=== PATIENT | male | born 1950 | race Caucasian/White ===

== ENCOUNTER 2017-01-03 16:04 | Inpatient (IN) | payer MEDICARE, MEDICAID ==
[2017-01-03 16:25] LABS: % BASOPHILS 0.5 % (0.0-2.0); % EOSINOPHILS 3.4 % (0.0-5.0); % LYMPHOCYTES 23.9 % (20.0-50.0); % MONOCYTES 10.7 % (2.0-10.0); % NEUTROPHILS 61.5 % (40.0-80.0); HEMATOCRIT 36.9 % (39.0-49.0); HEMOGLOBIN 12.3 gm/dL (12.6-17.4); MEAN CELL VOLUME 100.4 fl (80-99); MEAN CORPUSCULAR HEMOGLOBIN 33.6 pg (27.0-31.0); MEAN CORPUSCULAR HGB CONC 33.5 pg (28.0-36.0); MEAN PLATELET VOLUME 9.7 fl; NEUTROPHILE ABSOLUTE 4.4 Th/cmm (1.8-8.0); PLATELET COUNT 129 Th/cmm (150-400); RED BLOOD COUNT 3.67 Mil/cmm (3.80-5.80); RED CELL DISTRIBUTION WIDTH 14.6 % (11.5-20.0); WHITE BLOOD COUNT 7.1 Th/cmm (4.8-10.8)
[2017-01-03 16:37] LABS: INR 1.09 (0.5-1.4); PROTHROMBIN TIME (TEST) 11.4 SECONDS (9.5-11.5)
[2017-01-03 16:40] LABS: ALB/GLOB RATIO 1.1 (1.0-1.8); ALKALINE PHOSPHATASE 60 U/L (34-104); ANION GAP 9.7 (7.0-16.0); BILIRUBIN,TOTAL 0.5 mg/dL (0.3-1.0); BUN - UREA NITROGEN 39 mg/dL (7-25); BUN/CREATININE RATIO 27.9; CALCIUM SERUM 9.7 mg/dL (8.6-10.3); CHLORIDE 112 mEq/L (98-107); CREATININE - SERUM 1.4 mg/dL (0.7-1.3); GLUCOSE 95 mg/dL (70-105); POTASSIUM SERUM 4.7 mEq/L (3.5-5.1); SGOT 25 U/L (13-39); SGPT/ALT 13 U/L (7-52); SODIUM SERUM 148 mEq/L (136-145)
[2017-01-03 16:41] LABS: CHOLESTEROL 178 mg/dL (<200); TRIGLYCERIDES 106 mg/dL (<150)
[2017-01-03 16:44] LABS: URINE BILIRUBIN NEGATIVE (NEGATIVE); URINE BLOOD SMALL (NEGATIVE); URINE GLUCOSE (UA) NEGATIVE (NEGATIVE); URINE KETONE NEGATIVE (NEGATIVE); URINE PROTEIN NEGATIVE (NEGATIVE); URINE UROBILINOGEN 0.2 E.U./dL (0.2 - 1.0)
[2017-01-03 16:53] LABS: URINE COLOR YELLOW
[2017-01-03 16:54] LABS: URINE BACTERIA FEW /hpf (NONE SEEN); URINE EPITHELIAL CELLS OCCASIONAL /lpf (FEW)
[2017-01-03] MEDS ORDERED: Sodium Chloride 0.45% 1,000 ML IV ONE (17:17)
--- NOTE | 2017-01-03 17:25 | ED Physician Chart ---
Chief Complaint/HPI - Patient Information Date Seen:: 01/03/17 Time Seen:: 16:10 Chief Complaint:: abdnormal labs History of Present Illness:: THIS A 66 YO MALE SENT FROM A [facility] FOR EVALUATION AND TREATMENT OF ABNORMAL LABS. THE PATIENT HAS INTERMITTENT CHOREA AND HAS LIVER DISEASE BUT IS ORIENTED TIMES THREE. HE HAS CHRONIC LIVER DISEASE Allergies:: Allergies Allergy/AdvReac Type Severity Reaction Status Date / Time No Known Allergies Allergy Verified 01/03/17 16:05 Vitals:: Vital Signs - 8 hr 01/03/17 16:05 Temp 98.1 F HR 50 RR 16 BP 182/83 O2 Sat % 96 Historian:: Medical Records Review:: Nurse's Note Reviewed Review of Systems - Review of Systems General/Constitutional: No fever, No chills, Weight loss, No weight loss, No weakness, No diaphoresis, No edema, No loss of appetite Skin: No skin lesions, No rash, No bruising Head: No headache, No light-headedness Eyes: No loss of vision, No pain, No diplopia ENT: No earache, No nasal drainage, No sore throat, No tinnitus Neck: No neck pain, No swelling, No thyromegaly, No stiffness, No mass noted Cardio Vascular: No chest pain, Palpitations, No PND, No orthopnea, No edema Pulmonary: No SOB, No cough, No sputum, No wheezing GI: No nausea, No vomiting, No diarrhea, No pain, No melena, No hematochezia, No constipation, No hematemesis G/U: No dysuria, No frequency, No hematuria Musculoskeletal: No bone or joint pain, No back pain, No muscle pain Endocrine: No polyuria, No polydipsia Psychiatric: Prior psych history, Depression, No anxiety, No suicidal ideation Hematopoietic: No bruising, No lymphadenopathy Allergic/Immuno: No urticaria, No angioedema Neurological: No syncope, No focal symptoms, No weakness, No paresthesia, No headache, No seizure, No dizziness, No confusion, No vertigo Other: CHOREA Past Medical History - Past Medical History Obtainable: Yes Past Medical History: HTN, CVA/TIA, PUD/GERD, Dementia Family History: None Social History: Non Smoker, No Alcohol, No Drug Use, Care Facility Surgical History: None Psychiatricy History: Depression, Schizophrenia Medication: Reviewed Family Medical History - Family Member Mother History Unknown: Yes Physical Exam - Physical Examination General/Constitutional: Awake, Well-developed, well-nourished, Alert, No distress, GCS 15, Non-toxic appearing, Ambulatory Other Gen/Cons comments:: VERY WEAK WITH INTERMITTENT CHOREA,CACHEXIA AND NAUSEATED. Head: Atraumatic Eyes: Lids, conjuctiva normal, PERRL, EOMI Skin: Nl inspection, No rash, No skin lesions, No ecchymosis, Well hydrated, No lymphadenopathy ENMT: External ears, nose nl, Nasal exam nl, Lips, teeth, gums nl Neck: Nontender, Full ROM w/o pain, No JVD, No nuchal rigidity, No bruit, No mass, No stridor Respiratory: Nl effort/Exclusion, Clear to Auscultation, No Wheeze/Rhonchi/Rales Cardio Vascular: RRR, No murmur, gallop, rubs, NL S1 S2 Other Cardio Vascular comments:: THIS PATIENT HAS IRREGULAR FAST AND SLOW PERIOD WITH SICK SINUS-LIKE SYNDROME. GI: No tenderness/rebounding/guarding, No organomegaly, No hernia, Normal BS's, Nondistended, No mass/bruits, No McBurney tenderness : No CVA tenderness Extremities: No tenderness or effusion, Full ROM, normal strength in all extremities, No edema, Normal digits & nails Other Extremities comments:: SEVERE MUSCLE WASTING. Neuro/Psych: Alert/oriented, DTR's symmetric, Normal sensory exam, Judgement/ insight normal, Mood normal, Normal gait, No focal deficits Other Neuro/Psych comments:: INTERMITTENT CHOREA AND PERIODS OF WEAKNESS. Misc: normal gait, Normal back, No paraspinal tenderness Labs/Radiology/EKG Results - Lab Results Results: Laboratory Tests 01/03/17 01/03/17 01/03/17 16:17 16:17 16:17 WBC 7.1 RBC 3.67 L Hgb 12.3 L Hct 36.9 L MCV 100.4 H MCH 33.6 H MCHC Differential 33.5 RDW 14.6 Plt Count 129 L MPV 9.7 Neutrophils % 61.5 Lymphocytes % 23.9 Monocytes % 10.7 H Eosinophils % 3.4 Basophils % 0.5 PT 11.4 INR 1.09 Sodium Potassium Chloride Carbon Dioxide Anion Gap BUN Creatinine Est GFR ( Amer) Est GFR (Non-Af Amer) BUN/Creatinine Ratio Glucose Calcium Total Bilirubin AST ALT Alkaline Phosphatase Troponin I Total Protein Albumin Globulin Albumin/Globulin Ratio Triglycerides 106 Cholesterol 178 LDL Cholesterol Direct 110 HDL Cholesterol 40 Urine Source Urine Color Urine Clarity Urine pH Ur Specific [place] Urine Protein Urine Glucose (UA) Urine Ketones Urine Blood Urine Nitrate Urine Bilirubin Urine Urobilinogen Ur Leukocyte Esterase Urine RBC Urine WBC Ur Epithelial Cells Urine Bacteria 01/03/17 01/03/17 01/03/17 16:17 16:17 16:29 WBC RBC Hgb Hct MCV MCH MCHC Differential RDW Plt Count MPV Neutrophils % Lymphocytes % Monocytes % Eosinophils % Basophils % PT INR Sodium 148 H Potassium 4.7 Chloride 112 H Carbon Dioxide 31.0 Anion Gap 9.7 BUN 39 H Creatinine 1.4 H Est GFR ( Amer) > 60.0 Est GFR (Non-Af Amer) 53.7 BUN/Creatinine Ratio 27.9 Glucose 95 Calcium 9.7 Total Bilirubin 0.5 AST 25 ALT 13 Alkaline Phosphatase 60 Troponin I 0.03 Total Protein 7.0 Albumin 3.7 L Globulin 3.3 Albumin/Globulin Ratio 1.1 Triglycerides Cholesterol LDL Cholesterol Direct HDL Cholesterol Urine Source CLEAN C Urine Color YELLOW Urine Clarity CLEAR Urine pH 6.0 Ur Specific [place] 1.010 Urine Protein NEGATIVE Urine Glucose (UA) NEGATIVE Urine Ketones NEGATIVE Urine Blood SMALL H Urine Nitrate NEGATIVE Urine Bilirubin NEGATIVE Urine Urobilinogen 0.2 Ur Leukocyte Esterase TRACE H Urine RBC 2-5 H Urine WBC 2-5 H Ur Epithelial Cells OCCASIONAL Urine Bacteria FEW - EKG Interpretations EKG Time:: 16:05 Rate & Rhythm: RATE= 44, SINUS [place]: LEFT AXIS Assessment - Assessment General Assessment: HEPATIC ENCEPHALOPATHY SICK SINUS SYNDROME ELEVATED BUN ED Septic Shock - . Is Septic Shock (SBP<90, OR Lactate>4 mmol\L) present?: No - <6hrs of presentation: Vital Signs: Vital Signs - 8 hr 01/03/17 16:05 Temp 98.1 F HR 50 RR 16 BP 182/83 O2 Sat % 96 Reassessment (Disposition) - Reassessment Reassessment Condition:: Improved - Diagnosis Diagnosis:: SICK SINUS SYNDROME HEPATIC FAILUR INTERMITTENT CHOREA - Patient Disposition Discharge/Transfer:: Acute Care w/in this hosp Admitted to:: ICU Admitting Medical Physician:: Jose R Hernandez Condition at Disposition:: Unchanged ED Discharge Plan - Patient Disposition Admit/Discharge/Transfer: Acute Care w/in this hosp Condition at Disposition: Improved
[2017-01-03 20:54] VITALS: BP 160/84
[2017-01-03] MEDS ORDERED: Lactulose 10 Gm/15 mL 30mL UDC PO SCH (21:00)
[2017-01-03] MEDS: Lactulose 10 Gm/15 mL 30mL UDC PO SCH (21:26)
[2017-01-03] MEDS: D5-0.45NS 1,000 ML IV SCH (21:34)
[2017-01-03] MEDS ORDERED: Atropine Sulfate 1 mg/mL 1 mL Vial IVP PRN (23:31)
[2017-01-04] MEDS: Lactulose 10 Gm/15 mL 30mL UDC PO SCH ×4 (08:54→20:16)
[2017-01-04] MEDS: Pantoprazole 40 mg EC Tab PO SCH (08:54)
[2017-01-04 08:56] LABS: MEAN CELL VOLUME 100.2 fl (80-99)
--- NOTE | 2017-01-04 08:56 | Diagnostic Imaging Report ---
Exam: Portable examination of chest. HISTORY: Chest discomfort Findings: Portable upright examination of the chest at 1623 was reviewed, no prior studies available comparison. The study demonstrates COPD changes. Bony thorax remarkable for old fractures of the clavicles bilaterally. Mediastinal structures midline the costophrenic angles are clear. IMPRESSION: 1. COPD changes no acute disease.
[2017-01-04] MEDS ORDERED: LACOSAMIDE PO SCH (09:00)
[2017-01-04] MEDS ORDERED: NYSTATIN TP SCH (09:00)
[2017-01-04 09:12] LABS: ALB/GLOB RATIO 1.1 (1.0-1.8); ANION GAP 8.4 (7.0-16.0); BILIRUBIN,TOTAL 0.6 mg/dL (0.3-1.0); BUN - UREA NITROGEN 30 mg/dL (7-25); BUN/CREATININE RATIO 27.3; CALCIUM SERUM 9.4 mg/dL (8.6-10.3); CARBON DIOXIDE 29.5 mEq/L (21.0-31.0); CHLORIDE 111 mEq/L (98-107); CREATININE - SERUM 1.1 mg/dL (0.7-1.3); GLUCOSE 82 mg/dL (70-105); POTASSIUM SERUM 3.9 mEq/L (3.5-5.1); SGOT 27 U/L (13-39); SGPT/ALT 13 U/L (7-52); SODIUM SERUM 145 mEq/L (136-145)
[2017-01-04 09:13] LABS: ALKALINE PHOSPHATASE 69 U/L (34-104)
[2017-01-04 09:21] LABS: % BASOPHILS 1.4 % (0.0-2.0); % EOSINOPHILS 4.9 % (0.0-5.0); % LYMPHOCYTES 29.1 % (20.0-50.0); % MONOCYTES 9.5 % (2.0-10.0); % NEUTROPHILS 55.1 % (40.0-80.0); HEMATOCRIT 38.1 % (39.0-49.0); HEMOGLOBIN 12.5 gm/dL (12.6-17.4); MEAN CORPUSCULAR HEMOGLOBIN 32.8 pg (27.0-31.0); MEAN CORPUSCULAR HGB CONC 32.7 pg (28.0-36.0); MEAN PLATELET VOLUME 10.6 fl; NEUTROPHILE ABSOLUTE 3.1 Th/cmm (1.8-8.0); RED CELL DISTRIBUTION WIDTH 14.4 % (11.5-20.0)
[2017-01-04 09:22] LABS: PLATELET COUNT 100 Th/cmm (150-400); WHITE BLOOD COUNT 5.6 Th/cmm (4.8-10.8)
--- NOTE | 2017-01-04 12:06 | History and Physical ---
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 PATIENT HAS A PAST MEDICAL HISTORY OF HTN, CVA, TIA, GERD, SCHIZOPHRENIA, DEMENTIA. 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: Other ( MENTIONED IN HPI) GI: Report: GERD Psych: Report: Schizophrenia Musculoskeletal: Report: Other ( MENTIONED IN HPI) Rheumatologic: Report: No pertinent Hx Infectious Disease: Report: No Pertinent Hx Renal/: Report: Other ( MENTIONED IN HPI) - Past Surgical History Past Surgical History: Other Family Medical History - Family Member Mother History Unknown: Yes Social History Smoke: No Alcohol: None Drugs: None Lives: Residential - Medications Home Medications: Home Medication Medication Instructions Recorded Type Calcium Carbonate [Calcium Carb] 600 mg PO DAILY 01/03/[address] [Depakote DR] 250 mg PO TID 01/03/17 History Furosemide [Lasix] 20 mg PO DAILY 01/03/17 History Hydrocodone/APAP 10 mg/325 mg 1 tab PO Q6H PRN 01/03/17 History [Thornton 10 mg/325 mg] Lacosamide [Vimpat] 400 mg PO BID 01/03/17 History Lactulose [Cephulac] 30 ml PO QID 01/03/17 History Latanoprost 0.005% Ophth Soln 1 drop EACH EYE HS 01/03/17 History [Xalatan 0.005% Ophth Soln] Nystatin 1 units TP BID 01/03/17 History Pantoprazole [Protonix] 40 mg PO DAILY 01/03/17 History QUEtiapine Fumarate [SEROquel] 125 mg PO BID 01/03/17 History Sertraline [Zoloft] 50 mg PO HS 01/03/17 History - Allergies Allergies/Adverse Reactions: Allergies Allergy/AdvReac Type Severity Reaction Status Date / Time No Known Allergies Allergy Verified 01/03/17 16:05 Review of Systems - Review of Systems Constitutional: Denies: Fever, Chills Eyes: Denies: Pain ENT: Denies: Ear Pain, Ear Discharge Respiratory: Denies: Cough, Shortness of Breath Cardiovascular: Denies: Chest Pain, Palpitations Gastrointestinal: Denies: Nausea, Vomiting, Abdominal Pain, Diarrhea, Constipation Genitourinary: Denies: Dysuria Musculoskeletal: Denies: Neck Pain, Shoulder Pain Skin: Denies: Rash Neurological: Denies: Incoordination - Lab Results All Lab Results last 24 hours: Laboratory Last Values WBC 5.6 Th/cmm (4.8-10.8) D 01/04/17 08:40 RBC 3.80 Mil/cmm (3.80-5.80) 01/04/17 08:40 Hgb 12.5 gm/dL (12.6-17.4) L 01/04/17 08:40 Hct 38.1 % (39.0-49.0) L 01/04/17 08:40 MCV 100.2 fl (80-99) H 01/04/17 08:40 MCH 32.8 pg (27.0-31.0) H 01/04/17 08:40 MCHC Differential 32.7 pg (28.0-36.0) 01/04/17 08:40 RDW 14.4 % (11.5-20.0) 01/04/17 08:40 Plt Count 100 Th/cmm (150-400) L D 01/04/17 08:40 MPV 10.6 fl 01/04/17 08:40 Neutrophils % 55.1 % (40.0-80.0) 01/04/17 08:40 Lymphocytes % 29.1 % (20.0-50.0) 01/04/17 08:40 Monocytes % 9.5 % (2.0-10.0) 01/04/17 08:40 Eosinophils % 4.9 % (0.0-5.0) 01/04/17 08:40 Basophils % 1.4 % (0.0-2.0) 01/04/17 08:40 PT 11.4 SECONDS (9.5-11.5) 01/03/17 16:17 INR 1.09 (0.5-1.4) 01/03/17 16:17 Sodium 145 mEq/L (136-145) 01/04/17 08:40 Potassium 3.9 mEq/L (3.5-5.1) 01/04/17 08:40 Chloride 111 mEq/L (98-107) H 01/04/17 08:40 Carbon Dioxide 29.5 mEq/L (21.0-31.0) 01/04/17 08:40 Anion Gap 8.4 (7.0-16.0) 01/04/17 08:40 BUN 30 mg/dL (7-25) H 01/04/17 08:40 Creatinine 1.1 mg/dL (0.7-1.3) 01/04/17 08:40 Est GFR ( Amer) > 60.0 ml/min (>90) 01/04/17 08:40 Est GFR (Non-Af Amer) > 60.0 ml/min 01/04/17 08:40 BUN/Creatinine Ratio 27.3 01/04/17 08:40 Glucose 82 mg/dL (70-105) 01/04/17 08:40 Calcium 9.4 mg/dL (8.6-10.3) 01/04/17 08:40 Total Bilirubin 0.6 mg/dL (0.3-1.0) 01/04/17 08:40 AST 27 U/L (13-39) 01/04/17 08:40 ALT 13 U/L (7-52) 01/04/17 08:40 Alkaline Phosphatase 69 U/L (34-104) 01/04/17 08:40 Ammonia 55 umol/L (16-53) H 01/04/17 08:40 Troponin I 0.03 ng/mL (0.01-0.05) 01/03/17 16:17 Total Protein 7.0 gm/dL (6.0-8.3) 01/04/17 08:40 Albumin 3.6 gm/dL (4.2-5.5) L 01/04/17 08:40 Globulin 3.4 gm/dL 01/04/17 08:40 Albumin/Globulin Ratio 1.1 (1.0-1.8) 01/04/17 08:40 Triglycerides 106 mg/dL (<150) 01/03/17 16:17 Cholesterol 178 mg/dL (<200) 01/03/17 16:17 LDL Cholesterol Direct 110 mg/dL (75-193) 01/03/17 16:17 HDL Cholesterol 40 mg/dL (23-92) 01/03/17 16:17 TSH 0.67 uIU/ml (0.34-5.60) 01/04/17 04:48 Urine Source CLEAN C 01/03/17 16:29 Urine Color YELLOW 01/03/17 16:29 Urine Clarity CLEAR (CLEAR) 01/03/17 16:29 Urine pH 6.0 (4.6 - 8.0) 01/03/17 16:29 Ur Specific [place] 1.010 (1.005-1.030) 01/03/17 16:29 Urine Protein NEGATIVE mg/dL (NEGATIVE) 01/03/17 16:29 Urine Glucose (UA) NEGATIVE mg/dL (NEGATIVE) 01/03/17 16:29 Urine Ketones NEGATIVE mg/dL (NEGATIVE) 01/03/17 16:29 Urine Blood SMALL (NEGATIVE) H 01/03/17 16:29 Urine Nitrate NEGATIVE (NEGATIVE) 01/03/17 16:29 Urine Bilirubin NEGATIVE (NEGATIVE) 01/03/17 16:29 Urine Urobilinogen 0.2 E.U./dL (0.2 - 1.0) 01/03/17 16:29 Ur Leukocyte Esterase TRACE (NEGATIVE) H 01/03/17 16:29 Urine RBC 2-5 /hpf (0-5) H 01/03/17 16:29 Urine WBC 2-5 /hpf (0-5) H 01/03/17 16:29 Ur Epithelial Cells OCCASIONAL /lpf (FEW) 01/03/17 16:29 Urine Bacteria FEW /hpf (NONE SEEN) 01/03/17 16:29 Laboratory Results - last 24 hr 01/04/17 01/04/17 01/04/17 04:48 08:40 08:40 WBC RBC Hgb Hct MCV MCH MCHC Differential RDW Plt Count MPV Neutrophils % Lymphocytes % Monocytes % Eosinophils % Basophils % Sodium 145 Potassium 3.9 Chloride 111 H Carbon Dioxide 29.5 Anion Gap 8.4 BUN 30 H Creatinine 1.1 Est GFR ( Amer) > 60.0 Est GFR (Non-Af Amer) > 60.0 BUN/Creatinine Ratio 27.3 Glucose 82 Calcium 9.4 Total Bilirubin 0.6 AST 27 ALT 13 Alkaline Phosphatase 69 Ammonia 55 H Total Protein 7.0 Albumin 3.6 L Globulin 3.4 Albumin/Globulin Ratio 1.1 TSH 0.67 01/04/17 08:40 WBC 5.6 D RBC 3.80 Hgb 12.5 L Hct 38.1 L MCV 100.2 H MCH 32.8 H MCHC Differential 32.7 RDW 14.4 Plt Count 100 L D MPV 10.6 Neutrophils % 55.1 Lymphocytes % 29.1 Monocytes % 9.5 Eosinophils % 4.9 Basophils % 1.4 Sodium Potassium Chloride Carbon Dioxide Anion Gap BUN Creatinine Est GFR ( Amer) Est GFR (Non-Af Amer) BUN/Creatinine Ratio Glucose Calcium Total Bilirubin AST ALT Alkaline Phosphatase Ammonia Total Protein Albumin Globulin Albumin/Globulin Ratio TSH - Assessment Assessment: HEPATIC ENCEPHALOPATHY SICK SINUS SYNDROME ELEVATED BUN SEVERE MALNUTRITION ANEMIA HYPERNATREMIA HTN SCHIZOPHRENIA ACUTE UTI - Plan Plan: AM LABS ICU MONITORING CARDIO CONSULT IV ANTIBIOTICS
[2017-01-04] MEDS ORDERED: VTE Chemical Prophylaxis Screen/Admission MC PRN (12:22)
[2017-01-04] MEDS: cefTRIAXone 1 GM in Sodium Chloride 0.9% 50 ML IV SCH (13:00)
[2017-01-04] MEDS: NYSTATIN 100000 UNITS/GM POWD TP SCH ×2 (13:00→17:26)
--- NOTE | 2017-01-04 14:55 | Cardiology ---
01/04/2017 M-MODE ECHOCARDIOGRAM: Technically poor. 2D ECHO: Only structure ____ apical 4-chamber view, which showed normal sized left ventricle with hypertrophy of the left ventricle. Left atrium normal. Right ventricular cavity, right atrium normal, no pericardial effusion. CONCLUSION: Technically poor echo, hypertrophy of the left ventricle, ejection fraction 50%. Doppler study shows [id number] left ventricular hypertrophy, trace tricuspid regurgitation, ejection fraction 50%. [facility]# [id number]
[2017-01-04] MEDS: Theophylline 100 mg ER Tab PO SCH (17:26)
[2017-01-04] MEDS: D5-0.45NS 1,000 ML IV SCH (17:35)
--- NOTE | 2017-01-04 20:15 | Consultation ---
DATE OF CONSULTATION: 01/04/[address] Hernandez. HISTORY AND PHYSICAL: This is a 66-year-old male patient who was transferred to ICU because of altered level of consciousness with severe bradycardia. PAST MEDICAL HISTORY: Hypertension, schizophrenia, TIA, gastroesophageal reflux disease, dementia, hepatic encephalopathy, urinary tract infection, protein-calorie malnutrition, chorea, and old fracture on the right clavicle. FAMILY HISTORY: Unremarkable. SOCIAL HISTORY: No history of smoking or alcohol abuse. ALLERGIES: No known allergies. PHYSICAL EXAMINATION: VITAL SIGNS: Blood pressure 130/80, pulse 70, and respirations 20. HEAD: Normocephalic. No lumps or bumps. EYES: Pupils are equal and reactive to light. Fundi show AV nicking, sclerae white, and conjunctivae pink. NECK: Carotid 2+. Normal upstroke. JVD flat. Thyroid not palpable. Lymph nodes not palpable. CHEST: Shows increased AP diameter. No kyphosis or scoliosis. LUNGS: Bilateral bronchovesicular breath sounds. HEART: PMI fifth intercostal space with lateral to midclavicular line. S1, S2. No S3, S4, sinus bradycardia. ABDOMEN: Soft. Liver and spleen not palpable. No organomegaly. Bowel sounds active. NEUROLOGIC: No focal neurological deficit. EXTREMITIES: Peripheral pulses 2+. No pedal edema. The patient had an echocardiogram which showed ejection fraction of 50% with trace tricuspid regurgitation, [id number] left ventricular hypertrophy. CLINICAL IMPRESSION: Sinus bradycardia, asymptomatic, hypertension, schizophrenia, transient ischemic attack, gastroesophageal reflux disease, dementia, hepatic encephalopathy, urinary tract infection, protein-calorie malnutrition, chorea, and old fracture of the right clavicle. PLAN: The patient took monitor closely for arrhythmias, get TSH level, echo. Follow up with it in ICU. JOB# [id number]
--- NOTE | 2017-01-04 21:00 | Admit Criteria Form ---
Admit Criteria Forms - Admit Criteria Diagnosis: LIVER DISEASE COMPLICATIONS Clinical Indications for Admission to Inpatient Care (Place 'X' for any and all applicable criteria): Admission is indicated for patient with ANY ONE of the following(1)(2)(3)(4): [X ]I. Inpatient admission required rather than observation care because of ANY ONE of the following: [X ]a) Hemodynamic instability that is severe or persistent [ ]b) Severe electrolyte abnormalities requiring inpatient care [ ]c) Respiratory compromise that is severe or persistent [ ]d) Coagulation abnormal that is severe or persistent [ ]e) Severe pain requiring acute inpatient management [ ]f) Renal insufficiency that is severe or worsening [ ]g) Metabolic abnormalities (e.g., vomiting, hypoglycemia, acidosis) that are severe or persistent [ ]h) Hypovolemia or hypervolemia that is severe or persistent [ ]i) Absent bowel sounds with complete ileus(2) [ ]j) Signs of intestinal obstruction or peritonitis[A] [ ]k) IV fluid to replace significant ongoing losses (>3 L/m2 per day) [ ]l) Continuous IV infusion of anticoagulation, platelet inhibitor, vasoactive, or antiarrhythmic medication [ ]m) Percutaneous or open drainage (e.g., abscess, biliary tract) procedures [ ]n) Parenteral nutrition regimen that must be implemented on inpatient basis [ ]o) Other condition treatment or monitoring requiring inpatient admission [ ]II. Infected hepatic hydrothorax (eg, empyema) [ ]III. Hepatorenal syndrome (eg, elevated. creatinine with adequate volume status and negative evaluation for other cause)(8) [ ]IV. Spontaneous bacterial peritonitis [ ]V. Suspected infected ascites as indicated by ANY ONE of the following: [ ]a) Temp >100 degrees F (37.8 C ) [ ]b) High WBC count [ ]c) Abdominal pain or tenderness not relieved by paracentesis [ X]. New-onset or worsening hepatic encephalopathy(7) [ ]VII. Suspected fulminant hepatic failure (e.g., acute coagulopathy with hepatic encephalopathy or acute elevation of hepatic transaminases to more than 15 times baseline)(4) [ ]VIII. Acute hepatitis (e.g., ALT and AST at least 3 times baseline) with coagulopathy or severe jaundice as indicated by ANY ONE of the following(9)(10): [ ]a) Bilirubin >20 mg/dL (342 moles/L)(11) [ ]b) Acute elevation of PT to >50% above normal or INR >1.5 [ ] IX. Treatment of injury from hepatotoxin (e.g., acetaminophen) that requires inpatient monitoring [ ] X. Acute fatty liver of Extended stay beyond goal length of stay may be needed for(3)(7): [ ]a) Hepatorenal syndrome [ ]b) Severe or persistent hepatic encephalopathy [ ]c) Renal failure due to other causes associated with cirrhosis (e.g., hypovolemia) [ ]d) Severe or persistent coagulation abnormalities [ ]e) Refractory ascites, volume, or electrolyte abnormality [ ]f) Severe or persistent gastroesophageal bleeding [ ]g) Severe infectious or hepatotoxin-induced hepatitis (eg, acetaminophen) [ ]h) Hemodynamic instability that is severe or persistent The original [employer] content created by [employer] has been revised. The portions of the content which have been revised are identified through the use of italic text or in bold, and [facility] has neither reviewed nor approved the modified material. All other unmodified content is copyright [employer] [facility]. Please see references footnoted in the original [employer] [facility] edition 2016 Admit Criteria Met?: Yes
[2017-01-05 07:21] LABS: ANION GAP 9.2 (7.0-16.0); BUN - UREA NITROGEN 28 mg/dL (7-25); CARBON DIOXIDE 27.9 mEq/L (21.0-31.0); CHLORIDE 107 mEq/L (98-107); GLUCOSE 87 mg/dL (70-105); POTASSIUM SERUM 4.1 mEq/L (3.5-5.1); SODIUM SERUM 140 mEq/L (136-145)
[2017-01-05 07:32] LABS: HEMOGLOBIN 11.3 gm/dL (12.6-17.4); MEAN CELL VOLUME 100.8 fl (80-99); MEAN CORPUSCULAR HEMOGLOBIN 33.8 pg (27.0-31.0); MEAN CORPUSCULAR HGB CONC 33.6 pg (28.0-36.0); MEAN PLATELET VOLUME 9.6 fl; RED BLOOD COUNT 3.33 Mil/cmm (3.80-5.80); RED CELL DISTRIBUTION WIDTH 13.8 % (11.5-20.0)
[2017-01-05 07:34] LABS: HEMATOCRIT 33.6 % (39.0-49.0); PLATELET COUNT NOT ABLE TO PERFORM Th/cmm (150-400); WHITE BLOOD COUNT 7.8 Th/cmm (4.8-10.8)
[2017-01-05 08:09] LABS: BAND NEUTROPHILE 2 % (0-10); BASOPHIL 1 % (0-3); EOSINOPHIL 5 % (0-5); METAMYELOCYTE 2 % (0-0); NEUTROPHILS 48 % (40-80); TOTAL CELLS COUNTED 100
[2017-01-05 08:10] LABS: ANISOCYTOSIS 1+; PLATELET ESTIMATE DECREASED PLATELETS (NORMAL); PLATELET MORPHOLOGY GIANT PLATELETS SEEN (NORMAL)
[2017-01-05] MEDS: Pantoprazole 40 mg EC Tab PO SCH (08:12)
[2017-01-05] MEDS: NYSTATIN 100000 UNITS/GM POWD TP SCH ×2 (08:13→16:35)
[2017-01-05] MEDS: Theophylline 100 mg ER Tab PO SCH ×2 (08:13→16:35)
[2017-01-05] MEDS: Lactulose 10 Gm/15 mL 30mL UDC PO SCH ×3 (08:24→20:19)
--- NOTE | 2017-01-05 12:11 | Internal Medicine Prog Note ---
Internal Medicine Subjective - Subjective Patient is:: awake, eyes closed Patient Complaints of:: congestion Per staff patient has:: no adverse event Internal Medicine Objective - Results Result Diagrams: 01/05/17 06:43 01/05/17 06:43 Recent Labs: Laboratory Last Values WBC 7.8 Th/cmm (4.8-10.8) D 01/05/17 06:43 RBC 3.33 Mil/cmm (3.80-5.80) L 01/05/17 06:43 Hgb 11.3 gm/dL (12.6-17.4) L 01/05/17 06:43 Hct 33.6 % (39.0-49.0) L D 01/05/17 06:43 MCV 100.8 fl (80-99) H 01/05/17 06:43 MCH 33.8 pg (27.0-31.0) H 01/05/17 06:43 MCHC Differential 33.6 pg (28.0-36.0) 01/05/17 06:43 RDW 13.8 % (11.5-20.0) 01/05/17 06:43 Plt Count NOT ABLE TO PERFORM Th/cmm (150-400) D 01/05/17 06:43 MPV 9.6 fl 01/05/17 06:43 Neutrophils % 55.1 % (40.0-80.0) 01/04/17 08:40 Band Neutrophils % 2 % (0-10) 01/05/17 06:43 Lymphocytes % 29.1 % (20.0-50.0) 01/04/17 08:40 Monocytes % 9.5 % (2.0-10.0) 01/04/17 08:40 Eosinophils % 4.9 % (0.0-5.0) 01/04/17 08:40 Basophils % 1.4 % (0.0-2.0) 01/04/17 08:40 Neutrophils (Manual) 48 % (40-80) 01/05/17 06:43 Lymphocytes 29 % (20-50) 01/05/17 06:43 Monocytes 13 % (2-10) H 01/05/17 06:43 Eosinophils 5 % (0-5) 01/05/17 06:43 Basophils 1 % (0-3) 01/05/17 06:43 Metamyelocytes 2 % (0-0) H 01/05/17 06:43 Platelet Estimate DECREASED PLATELETS (NORMAL) 01/05/17 06:43 Platelet Morphology GIANT PLATELETS SEEN (NORMAL) 01/05/17 06:43 Anisocytosis 1+ 01/05/17 06:43 RBC Morph Micro Appear ABNORMAL (NORMAL) 01/05/17 06:43 PT 11.4 SECONDS (9.5-11.5) 01/03/17 16:17 INR 1.09 (0.5-1.4) 01/03/17 16:17 Sodium 140 mEq/L (136-145) 01/05/17 06:43 Potassium 4.1 mEq/L (3.5-5.1) 01/05/17 06:43 Chloride 107 mEq/L (98-107) 01/05/17 06:43 Carbon Dioxide 27.9 mEq/L (21.0-31.0) 01/05/17 06:43 Anion Gap 9.2 (7.0-16.0) 01/05/17 06:43 BUN 28 mg/dL (7-25) H 01/05/17 06:43 Creatinine 1.0 mg/dL (0.7-1.3) 01/05/17 06:43 Est GFR ( Amer) > 60.0 ml/min (>90) 01/05/17 06:43 Est GFR (Non-Af Amer) > 60.0 ml/min 01/05/17 06:43 BUN/Creatinine Ratio 28.0 01/05/17 06:43 Glucose 87 mg/dL (70-105) 01/05/17 06:43 Calcium 9.0 mg/dL (8.6-10.3) 01/05/17 06:43 Total Bilirubin 0.6 mg/dL (0.3-1.0) 01/04/17 08:40 AST 27 U/L (13-39) 01/04/17 08:40 ALT 13 U/L (7-52) 01/04/17 08:40 Alkaline Phosphatase 69 U/L (34-104) 01/04/17 08:40 Ammonia 55 umol/L (16-53) H 01/04/17 08:40 Troponin I 0.03 ng/mL (0.01-0.05) 01/03/17 16:17 Total Protein 7.0 gm/dL (6.0-8.3) 01/04/17 08:40 Albumin 3.6 gm/dL (4.2-5.5) L 01/04/17 08:40 Globulin 3.4 gm/dL 01/04/17 08:40 Albumin/Globulin Ratio 1.1 (1.0-1.8) 01/04/17 08:40 Triglycerides 106 mg/dL (<150) 01/03/17 16:17 Cholesterol 178 mg/dL (<200) 01/03/17 16:17 LDL Cholesterol Direct 110 mg/dL (75-193) 01/03/17 16:17 HDL Cholesterol 40 mg/dL (23-92) 01/03/17 16:17 TSH 0.67 uIU/ml (0.34-5.60) 01/04/17 04:48 Urine Source CLEAN C 01/03/17 16:29 Urine Color YELLOW 01/03/17 16:29 Urine Clarity CLEAR (CLEAR) 01/03/17 16:29 Urine pH 6.0 (4.6 - 8.0) 01/03/17 16:29 Ur Specific [place] 1.010 (1.005-1.030) 01/03/17 16:29 Urine Protein NEGATIVE mg/dL (NEGATIVE) 01/03/17 16:29 Urine Glucose (UA) NEGATIVE mg/dL (NEGATIVE) 01/03/17 16:29 Urine Ketones NEGATIVE mg/dL (NEGATIVE) 01/03/17 16:29 Urine Blood SMALL (NEGATIVE) H 01/03/17 16:29 Urine Nitrate NEGATIVE (NEGATIVE) 01/03/17 16:29 Urine Bilirubin NEGATIVE (NEGATIVE) 01/03/17 16:29 Urine Urobilinogen 0.2 E.U./dL (0.2 - 1.0) 01/03/17 16:29 Ur Leukocyte Esterase TRACE (NEGATIVE) H 01/03/17 16:29 Urine RBC 2-5 /hpf (0-5) H 01/03/17 16:29 Urine WBC 2-5 /hpf (0-5) H 01/03/17 16:29 Ur Epithelial Cells OCCASIONAL /lpf (FEW) 01/03/17 16:29 Urine Bacteria FEW /hpf (NONE SEEN) 01/03/17 16:29 - Physical Exam Vitals and I&O: Vital Signs Temp 97.5 F 01/05/17 08:00 Pulse 41 01/05/17 11:00 Resp 13 01/05/17 11:00 BP 149/72 01/05/17 11:00 Pulse Ox 98 01/05/17 11:00 Intake & Output 01/04/17 01/05/17 01/05/17 18:59 06:59 18:59 Intake Total 1750 200 300 Output Total 1250 900 500 Balance 500 -700 -200 Weight (lbs) 58.513 kg 58.513 kg 58.513 kg Intake: Intake, IV Amount 1050 D5-0.45NS 1,000 ml @ 50 1000 mls/hr IV .[facility]H [facility] Rx#: [id number] cefTRIAXone 1 gm In 50 Sodium Chloride 0.9% 50 ml @ 100 mls/hr IV Q24HR [facility] Rx#:[id number] Oral 700 200 300 Tube Feeding 0 TPN/PPN 0 Blood Product 0 Lipid 0 Albumin 0 Other 0 Output: Gastric Drainage 0 Urine 1250 900 500 Stool 0 0 Urine/Stool Mix 0 Emesis 0 Hemodialysis 0 Other 0 Other: # Voids 4 3 2 # Bowel Movements 0 3 1 Stool Characteristics Soft Soft Brown Formed Active Medications: Current Medications Acetaminophen/Hydrocodone Bitart ([place] 10 Mg/325 Mg) 1 tab PO Q6H PRN PRN Reason: Pain (Mild) Stop: 03/04/17 20:30 Atropine Sulfate (Atropine) 1 mg IVP Q4HR PRN PRN Reason: HR BELOW 40 Stop: 03/04/17 23:30 Last Admin: 01/04/17 01:29 Dose: 1 mg Calcium Carbonate (Calcium Carb) 600 mg PO DAILY [facility] Stop: 03/05/17 08:59 Last Admin: 01/05/17 08:13 Dose: 600 mg Divalproex Sodium (Depakote Dr) 250 mg PO TID [facility] PRN Reason: Protocol Stop: 03/04/17 20:59 Last Admin: 01/05/17 08:12 Dose: 250 mg Furosemide (Lasix) 20 mg PO DAILY [facility] Stop: 03/05/17 08:59 Last Admin: 01/05/17 08:12 Dose: 20 mg Dextrose/Sodium Chloride (D5-0.45ns) 1,000 mls @ 50 mls/hr IV .Q20H [facility] Stop: 03/04/17 20:23 Last Admin: 01/04/17 17:35 Dose: 50 mls/hr Ceftriaxone Sodium 1 gm/ (Sodium Chloride) 50 mls @ 100 mls/hr IV Q24HR [facility] Stop: 03/05/17 12:59 Last Infusion: 01/04/17 13:30 Dose: Infused Lacosamide (Vimpat) 400 mg PO BID [facility] Stop: 03/05/17 09:59 Last Admin: 01/05/17 08:12 Dose: 400 mg Lactulose (Cephulac) 60 gm PO TID T[facility] Stop: 03/04/17 20:59 Last Admin: 01/05/17 08:24 Dose: Not Given Latanoprost (Xalatan 0.005% [facility]) 1 drop EACH EYE HS [facility] Stop: 03/04/17 20:59 Last Admin: 01/04/17 20:19 Dose: 1 drop Miscellaneous (Vte Chemical Prophylaxis Screen/ Admission) 1 ea [facility] PRN PRN PRN Reason: PROTOCOL Stop: 03/05/17 12:21 Nystatin (Nystop) 100,000 units TP BID [facility] Stop: 03/05/17 11:29 Last Admin: 01/05/17 08:13 Dose: 100,000 units Pantoprazole Sodium (Protonix) 40 mg PO DAILY [facility] Stop: 03/05/17 08:59 Last Admin: 01/05/17 08:12 Dose: 40 mg Theophylline (Toby-Dur) 200 mg PO BID T[facility]RE[facility] Stop: 03/05/17 16:59 Last Admin: 01/05/17 08:13 Dose: 200 mg General: weak HEENT: NC/AT Neck: Supple Lungs: congested Cardiovascular: RRR Abdomen: soft, non-tender Extremities: clear Neurological: no change Internal Medicine Assmt/Plan - Assessment Assessment: HEPATIC ENCEPHALOPATHY SICK SINUS SYNDROME ELEVATED BUN SEVERE MALNUTRITION ANEMIA HYPERNATREMIA HTN SCHIZOPHRENIA ACUTE UTI - Plan Plan: AM LABS IV ANTIBIOTICS
[2017-01-05] MEDS: cefTRIAXone 1 GM in Sodium Chloride 0.9% 50 ML IV SCH (12:44)
[2017-01-05] MEDS: D5-0.45NS 1,000 ML IV SCH (12:46)
--- NOTE | 2017-01-05 14:46 | General Progress Note ---
Subjective - Review of Systems Events since last encounter: patient in icu still confused weak Objective - Results Result Diagrams: 01/05/17 06:43 01/05/17 06:43 Recent Labs: Laboratory Last Values WBC 7.8 Th/cmm (4.8-10.8) D 01/05/17 06:43 RBC 3.33 Mil/cmm (3.80-5.80) L 01/05/17 06:43 Hgb 11.3 gm/dL (12.6-17.4) L 01/05/17 06:43 Hct 33.6 % (39.0-49.0) L D 01/05/17 06:43 MCV 100.8 fl (80-99) H 01/05/17 06:43 MCH 33.8 pg (27.0-31.0) H 01/05/17 06:43 MCHC Differential 33.6 pg (28.0-36.0) 01/05/17 06:43 RDW 13.8 % (11.5-20.0) 01/05/17 06:43 Plt Count NOT ABLE TO PERFORM Th/cmm (150-400) D 01/05/17 06:43 MPV 9.6 fl 01/05/17 06:43 Neutrophils % 55.1 % (40.0-80.0) 01/04/17 08:40 Band Neutrophils % 2 % (0-10) 01/05/17 06:43 Lymphocytes % 29.1 % (20.0-50.0) 01/04/17 08:40 Monocytes % 9.5 % (2.0-10.0) 01/04/17 08:40 Eosinophils % 4.9 % (0.0-5.0) 01/04/17 08:40 Basophils % 1.4 % (0.0-2.0) 01/04/17 08:40 Neutrophils (Manual) 48 % (40-80) 01/05/17 06:43 Lymphocytes 29 % (20-50) 01/05/17 06:43 Monocytes 13 % (2-10) H 01/05/17 06:43 Eosinophils 5 % (0-5) 01/05/17 06:43 Basophils 1 % (0-3) 01/05/17 06:43 Metamyelocytes 2 % (0-0) H 01/05/17 06:43 Platelet Estimate DECREASED PLATELETS (NORMAL) 01/05/17 06:43 Platelet Morphology GIANT PLATELETS SEEN (NORMAL) 01/05/17 06:43 Anisocytosis 1+ 01/05/17 06:43 RBC Morph Micro Appear ABNORMAL (NORMAL) 01/05/17 06:43 PT 11.4 SECONDS (9.5-11.5) 01/03/17 16:17 INR 1.09 (0.5-1.4) 01/03/17 16:17 Sodium 140 mEq/L (136-145) 01/05/17 06:43 Potassium 4.1 mEq/L (3.5-5.1) 01/05/17 06:43 Chloride 107 mEq/L (98-107) 01/05/17 06:43 Carbon Dioxide 27.9 mEq/L (21.0-31.0) 01/05/17 06:43 Anion Gap 9.2 (7.0-16.0) 01/05/17 06:43 BUN 28 mg/dL (7-25) H 01/05/17 06:43 Creatinine 1.0 mg/dL (0.7-1.3) 01/05/17 06:43 Est GFR ( Amer) > 60.0 ml/min (>90) 01/05/17 06:43 Est GFR (Non-Af Amer) > 60.0 ml/min 01/05/17 06:43 BUN/Creatinine Ratio 28.0 01/05/17 06:43 Glucose 87 mg/dL (70-105) 01/05/17 06:43 Calcium 9.0 mg/dL (8.6-10.3) 01/05/17 06:43 Total Bilirubin 0.6 mg/dL (0.3-1.0) 01/04/17 08:40 AST 27 U/L (13-39) 01/04/17 08:40 ALT 13 U/L (7-52) 01/04/17 08:40 Alkaline Phosphatase 69 U/L (34-104) 01/04/17 08:40 Ammonia 55 umol/L (16-53) H 01/04/17 08:40 Troponin I 0.03 ng/mL (0.01-0.05) 01/03/17 16:17 Total Protein 7.0 gm/dL (6.0-8.3) 01/04/17 08:40 Albumin 3.6 gm/dL (4.2-5.5) L 01/04/17 08:40 Globulin 3.4 gm/dL 01/04/17 08:40 Albumin/Globulin Ratio 1.1 (1.0-1.8) 01/04/17 08:40 Triglycerides 106 mg/dL (<150) 01/03/17 16:17 Cholesterol 178 mg/dL (<200) 01/03/17 16:17 LDL Cholesterol Direct 110 mg/dL (75-193) 01/03/17 16:17 HDL Cholesterol 40 mg/dL (23-92) 01/03/17 16:17 TSH 0.67 uIU/ml (0.34-5.60) 01/04/17 04:48 Urine Source CLEAN C 01/03/17 16:29 Urine Color YELLOW 01/03/17 16:29 Urine Clarity CLEAR (CLEAR) 01/03/17 16:29 Urine pH 6.0 (4.6 - 8.0) 01/03/17 16:29 Ur Specific [place] 1.010 (1.005-1.030) 01/03/17 16:29 Urine Protein NEGATIVE mg/dL (NEGATIVE) 01/03/17 16:29 Urine Glucose (UA) NEGATIVE mg/dL (NEGATIVE) 01/03/17 16:29 Urine Ketones NEGATIVE mg/dL (NEGATIVE) 01/03/17 16:29 Urine Blood SMALL (NEGATIVE) H 01/03/17 16:29 Urine Nitrate NEGATIVE (NEGATIVE) 01/03/17 16:29 Urine Bilirubin NEGATIVE (NEGATIVE) 01/03/17 16:29 Urine Urobilinogen 0.2 E.U./dL (0.2 - 1.0) 01/03/17 16:29 Ur Leukocyte Esterase TRACE (NEGATIVE) H 01/03/17 16:29 Urine RBC 2-5 /hpf (0-5) H 01/03/17 16:29 Urine WBC 2-5 /hpf (0-5) H 01/03/17 16:29 Ur Epithelial Cells OCCASIONAL /lpf (FEW) 01/03/17 16:29 Urine Bacteria FEW /hpf (NONE SEEN) 01/03/17 16:29 - Physical Exam Vitals and I&O: Vital Signs Temp 97.8 F 01/05/17 12:00 Pulse 45 01/05/17 13:00 Resp 12 01/05/17 13:00 BP 122/77 01/05/17 13:00 Pulse Ox 98 01/05/17 13:00 Intake & Output 01/04/17 01/05/17 01/05/17 18:59 06:59 18:59 Intake Total 4697 695 7844.167 Output Total 1250 900 750 Balance 500 -700 559.167 Weight (lbs) 58.513 kg 58.513 kg 56.699 kg Intake: Intake, IV Amount 1050 1009.167 D5-0.45NS 1,000 ml @ 50 1000 959.167 mls/hr IV .Q20H [facility] Rx#: [id number] cefTRIAXone 1 gm In 50 50 Sodium Chloride 0.9% 50 ml @ 100 mls/hr IV Q24HR [facility] Rx#:[id number] Oral 700 200 300 Tube Feeding 0 TPN/PPN 0 Blood Product 0 Lipid 0 Albumin 0 Other 0 Output: Gastric Drainage 0 Urine 1250 900 750 Stool 0 0 Urine/Stool Mix 0 Emesis 0 Hemodialysis 0 Other 0 Other: # Voids 4 3 1 # Bowel Movements 0 3 1 Stool Characteristics Soft Soft Brown Formed Active Medications: Current Medications Acetaminophen/Hydrocodone Bitart ([place] 10 Mg/325 Mg) 1 tab PO Q6H PRN PRN Reason: Pain (Mild) Stop: 03/04/17 20:30 Atropine Sulfate (Atropine) 1 mg IVP Q4HR PRN PRN Reason: HR BELOW 40 Stop: 03/04/17 23:30 Last Admin: 01/04/17 01:29 Dose: 1 mg Calcium Carbonate (Calcium Carb) 600 mg PO DAILY [facility] Stop: 03/05/17 08:59 Last Admin: 01/05/17 08:13 Dose: 600 mg Divalproex Sodium (Depakote Dr) 250 mg PO TID TYRELL PRN Reason: Protocol Stop: 03/04/17 20:59 Last Admin: 01/05/17 14:32 Dose: 250 mg Furosemide (Lasix) 20 mg PO DAILY [facility] Stop: 03/05/17 08:59 Last Admin: 01/05/17 08:12 Dose: 20 mg Dextrose/Sodium Chloride (D5-0.45ns) 1,000 mls @ 50 mls/hr IV .Q20H [facility] Stop: 03/04/17 20:23 Last Admin: 01/05/17 12:46 Dose: 50 mls/hr Ceftriaxone Sodium 1 gm/ (Sodium Chloride) 50 mls @ 100 mls/hr IV Q24HR [facility] Stop: 03/05/17 12:59 Last Infusion: 01/05/17 13:14 Dose: Infused Lacosamide (Vimpat) 400 mg PO BID [facility] Stop: 03/05/17 09:59 Last Admin: 01/05/17 08:12 Dose: 400 mg Lactulose (Cephulac) 60 gm PO TID T[facility] Stop: 03/04/17 20:59 Last Admin: 01/05/17 13:37 Dose: Not Given Latanoprost (Xalatan 0.005% [facility]) 1 drop EACH EYE HS [facility] Stop: 03/04/17 20:59 Last Admin: 01/04/17 20:19 Dose: 1 drop Miscellaneous (Vte Chemical Prophylaxis Screen/ Admission) 1 ea [facility] PRN PRN PRN Reason: PROTOCOL Stop: 03/05/17 12:21 Nystatin (Nystop) 100,000 units TP BID [facility] Stop: 03/05/17 11:29 Last Admin: 01/05/17 08:13 Dose: 100,000 units Pantoprazole Sodium (Protonix) 40 mg PO DAILY [facility] Stop: 03/05/17 08:59 Last Admin: 01/05/17 08:12 Dose: 40 mg Theophylline (Toby-Dur) 200 mg PO BID [facility] Stop: 03/05/17 16:59 Last Admin: 01/05/17 08:13 Dose: 200 mg Assessment/Plan - Assessment Assessment: HEPATIC ENCEPHALOPATHY SICK SINUS SYNDROME ELEVATED BUN SEVERE MALNUTRITION ANEMIA HYPERNATREMIA HTN SCHIZOPHRENIA ACUTE UTI - Plan Plan: AM LABS ICU MONITORING CARDIO CONSULT IV ANTIBIOTICS
[2017-01-06] MEDS: Pantoprazole 40 mg EC Tab PO SCH (09:12)
[2017-01-06] MEDS: Lactulose 10 Gm/15 mL 30mL UDC PO SCH ×3 (09:13→20:44)
[2017-01-06] MEDS: NYSTATIN 100000 UNITS/GM POWD TP SCH ×2 (09:14→16:58)
[2017-01-06] MEDS: Theophylline 100 mg ER Tab PO SCH ×2 (09:27→16:58)
--- NOTE | 2017-01-06 10:28 | General Progress Note ---
Subjective - Review of Systems Events since last encounter: patient awake , no distress confused Objective - Results Result Diagrams: 01/05/17 06:43 01/05/17 06:43 Recent Labs: Laboratory Last Values WBC 7.8 Th/cmm (4.8-10.8) D 01/05/17 06:43 RBC 3.33 Mil/cmm (3.80-5.80) L 01/05/17 06:43 Hgb 11.3 gm/dL (12.6-17.4) L 01/05/17 06:43 Hct 33.6 % (39.0-49.0) L D 01/05/17 06:43 MCV 100.8 fl (80-99) H 01/05/17 06:43 MCH 33.8 pg (27.0-31.0) H 01/05/17 06:43 MCHC Differential 33.6 pg (28.0-36.0) 01/05/17 06:43 RDW 13.8 % (11.5-20.0) 01/05/17 06:43 Plt Count NOT ABLE TO PERFORM Th/cmm (150-400) D 01/05/17 06:43 MPV 9.6 fl 01/05/17 06:43 Neutrophils % 55.1 % (40.0-80.0) 01/04/17 08:40 Band Neutrophils % 2 % (0-10) 01/05/17 06:43 Lymphocytes % 29.1 % (20.0-50.0) 01/04/17 08:40 Monocytes % 9.5 % (2.0-10.0) 01/04/17 08:40 Eosinophils % 4.9 % (0.0-5.0) 01/04/17 08:40 Basophils % 1.4 % (0.0-2.0) 01/04/17 08:40 Neutrophils (Manual) 48 % (40-80) 01/05/17 06:43 Lymphocytes 29 % (20-50) 01/05/17 06:43 Monocytes 13 % (2-10) H 01/05/17 06:43 Eosinophils 5 % (0-5) 01/05/17 06:43 Basophils 1 % (0-3) 01/05/17 06:43 Metamyelocytes 2 % (0-0) H 01/05/17 06:43 Platelet Estimate DECREASED PLATELETS (NORMAL) 01/05/17 06:43 Platelet Morphology GIANT PLATELETS SEEN (NORMAL) 01/05/17 06:43 Anisocytosis 1+ 01/05/17 06:43 RBC Morph Micro Appear ABNORMAL (NORMAL) 01/05/17 06:43 PT 11.4 SECONDS (9.5-11.5) 01/03/17 16:17 INR 1.09 (0.5-1.4) 01/03/17 16:17 Sodium 140 mEq/L (136-145) 01/05/17 06:43 Potassium 4.1 mEq/L (3.5-5.1) 01/05/17 06:43 Chloride 107 mEq/L (98-107) 01/05/17 06:43 Carbon Dioxide 27.9 mEq/L (21.0-31.0) 01/05/17 06:43 Anion Gap 9.2 (7.0-16.0) 01/05/17 06:43 BUN 28 mg/dL (7-25) H 01/05/17 06:43 Creatinine 1.0 mg/dL (0.7-1.3) 01/05/17 06:43 Est GFR ( Amer) > 60.0 ml/min (>90) 01/05/17 06:43 Est GFR (Non-Af Amer) > 60.0 ml/min 01/05/17 06:43 BUN/Creatinine Ratio 28.0 01/05/17 06:43 Glucose 87 mg/dL (70-105) 01/05/17 06:43 Calcium 9.0 mg/dL (8.6-10.3) 01/05/17 06:43 Total Bilirubin 0.6 mg/dL (0.3-1.0) 01/04/17 08:40 AST 27 U/L (13-39) 01/04/17 08:40 ALT 13 U/L (7-52) 01/04/17 08:40 Alkaline Phosphatase 69 U/L (34-104) 01/04/17 08:40 Ammonia 55 umol/L (16-53) H 01/04/17 08:40 Troponin I 0.03 ng/mL (0.01-0.05) 01/03/17 16:17 Total Protein 7.0 gm/dL (6.0-8.3) 01/04/17 08:40 Albumin 3.6 gm/dL (4.2-5.5) L 01/04/17 08:40 Globulin 3.4 gm/dL 01/04/17 08:40 Albumin/Globulin Ratio 1.1 (1.0-1.8) 01/04/17 08:40 Triglycerides 106 mg/dL (<150) 01/03/17 16:17 Cholesterol 178 mg/dL (<200) 01/03/17 16:17 LDL Cholesterol Direct 110 mg/dL (75-193) 01/03/17 16:17 HDL Cholesterol 40 mg/dL (23-92) 01/03/17 16:17 TSH 0.67 uIU/ml (0.34-5.60) 01/04/17 04:48 Urine Source CLEAN C 01/03/17 16:29 Urine Color YELLOW 01/03/17 16:29 Urine Clarity CLEAR (CLEAR) 01/03/17 16:29 Urine pH 6.0 (4.6 - 8.0) 01/03/17 16:29 Ur Specific [place] 1.010 (1.005-1.030) 01/03/17 16:29 Urine Protein NEGATIVE mg/dL (NEGATIVE) 01/03/17 16:29 Urine Glucose (UA) NEGATIVE mg/dL (NEGATIVE) 01/03/17 16:29 Urine Ketones NEGATIVE mg/dL (NEGATIVE) 01/03/17 16:29 Urine Blood SMALL (NEGATIVE) H 01/03/17 16:29 Urine Nitrate NEGATIVE (NEGATIVE) 01/03/17 16:29 Urine Bilirubin NEGATIVE (NEGATIVE) 01/03/17 16:29 Urine Urobilinogen 0.2 E.U./dL (0.2 - 1.0) 01/03/17 16:29 Ur Leukocyte Esterase TRACE (NEGATIVE) H 01/03/17 16:29 Urine RBC 2-5 /hpf (0-5) H 01/03/17 16:29 Urine WBC 2-5 /hpf (0-5) H 01/03/17 16:29 Ur Epithelial Cells OCCASIONAL /lpf (FEW) 01/03/17 16:29 Urine Bacteria FEW /hpf (NONE SEEN) 01/03/17 16:29 - Physical Exam Vitals and I&O: Vital Signs Temp 98.0 F 01/06/17 08:00 Pulse 41 01/06/17 08:00 Resp 16 01/06/17 08:00 BP 155/70 01/06/17 09:11 Pulse Ox 97 01/06/17 08:00 Intake & Output 01/05/17 01/06/17 01/06/17 18:59 06:59 18:59 Intake Total 1309.167 Output Total 750 Balance 559.167 Weight (lbs) 56.699 kg Intake: Intake, IV Amount 1009.167 D5-0.45NS 1,000 ml @ 50 959.167 mls/hr IV .Q20H [facility] Rx#: [id number] cefTRIAXone 1 gm In 50 Sodium Chloride 0.9% 50 ml @ 100 mls/hr IV Q24HR [facility] Rx#:[id number] Oral 300 Tube Feeding 0 TPN/PPN 0 Blood Product 0 Lipid 0 Albumin 0 Other 0 Output: Gastric Drainage 0 Urine 750 Stool 0 Urine/Stool Mix 0 Emesis 0 Hemodialysis 0 Other 0 Other: # Voids 1 # Bowel Movements 1 Stool Characteristics Soft Formed Active Medications: Current Medications Acetaminophen/Hydrocodone Bitart ([place] 10 Mg/325 Mg) 1 tab PO Q6H PRN PRN Reason: Pain (Mild) Stop: 03/04/17 20:30 Atropine Sulfate (Atropine) 1 mg IVP Q4HR PRN PRN Reason: HR BELOW 40 Stop: 03/04/17 23:30 Last Admin: 01/04/17 01:29 Dose: 1 mg Calcium Carbonate (Calcium Carb) 600 mg PO DAILY [facility] Stop: 03/05/17 08:59 Last Admin: 01/06/17 09:12 Dose: 600 mg Divalproex Sodium (Depakote Dr) 250 mg PO TID [facility] PRN Reason: Protocol Stop: 03/04/17 20:59 Last Admin: 01/06/17 09:11 Dose: 250 mg Furosemide (Lasix) 20 mg PO DAILY [facility] Stop: 03/05/17 08:59 Last Admin: 01/06/17 09:11 Dose: 20 mg Dextrose/Sodium Chloride (D5-0.45ns) 1,000 mls @ 50 mls/hr IV .Q20H [facility] Stop: 03/04/17 20:23 Last Admin: 01/05/17 12:46 Dose: 50 mls/hr Ceftriaxone Sodium 1 gm/ (Sodium Chloride) 50 mls @ 100 mls/hr IV Q24HR [facility] Stop: 03/05/17 12:59 Last Infusion: 01/05/17 13:14 Dose: Infused Lacosamide (Vimpat) 400 mg PO BID [facility] Stop: 03/05/17 09:59 Last Admin: 01/06/17 09:12 Dose: Not Given Lactulose (Cephulac) 60 gm PO TID [facility] Stop: 03/04/17 20:59 Last Admin: 01/06/17 09:13 Dose: 60 gm Latanoprost (Xalatan 0.005% Oph Soln) 1 drop EACH EYE HS TYRELL Stop: 03/04/17 20:59 Last Admin: 01/05/17 20:21 Dose: 1 drop Miscellaneous (Vte Chemical Prophylaxis Screen/ Admission) 1 ea MC PRN PRN PRN Reason: PROTOCOL Stop: 03/05/17 12:21 Nystatin (Nystop) 100,000 units TP BID TYRELL Stop: 03/05/17 11:29 Last Admin: 01/06/17 09:14 Dose: 100,000 units Ondansetron HCl (Zofran) 4 mg IV Q6H PRN PRN Reason: Nausea / Vomiting Stop: 03/06/17 18:33 Last Admin: 01/05/17 18:40 Dose: 4 mg Pantoprazole Sodium (Protonix) 40 mg PO DAILY TYRELL Stop: 03/05/17 08:59 Last Admin: 01/06/17 09:12 Dose: 40 mg Theophylline (Toby-Dur) 200 mg PO BID TYRELL Stop: 03/05/17 16:59 Last Admin: 01/06/17 09:27 Dose: Not Given Assessment/Plan - Assessment Assessment: HEPATIC ENCEPHALOPATHY SICK SINUS SYNDROME ELEVATED BUN SEVERE MALNUTRITION ANEMIA HYPERNATREMIA HTN SCHIZOPHRENIA ACUTE UTI - Plan Plan: AM LABS ICU MONITORING CARDIO CONSULT IV ANTIBIOTICS
[2017-01-06] MEDS: cefTRIAXone 1 GM in Sodium Chloride 0.9% 50 ML IV SCH (13:06)
[2017-01-06] MEDS: D5-0.45NS 1,000 ML IV SCH (13:09)
[2017-01-06] MEDS: Hydrocodone/APAP 10 mg/325 mg Tab PO PRN (23:53)
[2017-01-07] MEDS: Hydrocodone/APAP 10 mg/325 mg Tab PO PRN ×2 (08:13→13:17)
[2017-01-07] MEDS: Theophylline 100 mg ER Tab PO SCH ×2 (08:13→17:13)
[2017-01-07] MEDS: NYSTATIN 100000 UNITS/GM POWD TP SCH ×2 (08:13→17:15)
[2017-01-07] MEDS: Pantoprazole 40 mg EC Tab PO SCH (08:13)
[2017-01-07] MEDS: Lactulose 10 Gm/15 mL 30mL UDC PO SCH ×3 (08:14→21:43)
[2017-01-07] MEDS: D5-0.45NS 1,000 ML IV SCH (12:53)
--- NOTE | 2017-01-07 13:19 | General Progress Note ---
Subjective - Review of Systems Events since last encounter: patient awake ,alert no distress Objective - Results Result Diagrams: 01/05/17 06:43 01/05/17 06:43 Recent Labs: Laboratory Last Values WBC 7.8 Th/cmm (4.8-10.8) D 01/05/17 06:43 RBC 3.33 Mil/cmm (3.80-5.80) L 01/05/17 06:43 Hgb 11.3 gm/dL (12.6-17.4) L 01/05/17 06:43 Hct 33.6 % (39.0-49.0) L D 01/05/17 06:43 MCV 100.8 fl (80-99) H 01/05/17 06:43 MCH 33.8 pg (27.0-31.0) H 01/05/17 06:43 MCHC Differential 33.6 pg (28.0-36.0) 01/05/17 06:43 RDW 13.8 % (11.5-20.0) 01/05/17 06:43 Plt Count NOT ABLE TO PERFORM Th/cmm (150-400) D 01/05/17 06:43 MPV 9.6 fl 01/05/17 06:43 Neutrophils % 55.1 % (40.0-80.0) 01/04/17 08:40 Band Neutrophils % 2 % (0-10) 01/05/17 06:43 Lymphocytes % 29.1 % (20.0-50.0) 01/04/17 08:40 Monocytes % 9.5 % (2.0-10.0) 01/04/17 08:40 Eosinophils % 4.9 % (0.0-5.0) 01/04/17 08:40 Basophils % 1.4 % (0.0-2.0) 01/04/17 08:40 Neutrophils (Manual) 48 % (40-80) 01/05/17 06:43 Lymphocytes 29 % (20-50) 01/05/17 06:43 Monocytes 13 % (2-10) H 01/05/17 06:43 Eosinophils 5 % (0-5) 01/05/17 06:43 Basophils 1 % (0-3) 01/05/17 06:43 Metamyelocytes 2 % (0-0) H 01/05/17 06:43 Platelet Estimate DECREASED PLATELETS (NORMAL) 01/05/17 06:43 Platelet Morphology GIANT PLATELETS SEEN (NORMAL) 01/05/17 06:43 Anisocytosis 1+ 01/05/17 06:43 RBC Morph Micro Appear ABNORMAL (NORMAL) 01/05/17 06:43 PT 11.4 SECONDS (9.5-11.5) 01/03/17 16:17 INR 1.09 (0.5-1.4) 01/03/17 16:17 Sodium 140 mEq/L (136-145) 01/05/17 06:43 Potassium 4.1 mEq/L (3.5-5.1) 01/05/17 06:43 Chloride 107 mEq/L (98-107) 01/05/17 06:43 Carbon Dioxide 27.9 mEq/L (21.0-31.0) 01/05/17 06:43 Anion Gap 9.2 (7.0-16.0) 01/05/17 06:43 BUN 28 mg/dL (7-25) H 01/05/17 06:43 Creatinine 1.0 mg/dL (0.7-1.3) 01/05/17 06:43 Est GFR ( Amer) > 60.0 ml/min (>90) 01/05/17 06:43 Est GFR (Non-Af Amer) > 60.0 ml/min 01/05/17 06:43 BUN/Creatinine Ratio 28.0 01/05/17 06:43 Glucose 87 mg/dL (70-105) 01/05/17 06:43 Calcium 9.0 mg/dL (8.6-10.3) 01/05/17 06:43 Total Bilirubin 0.6 mg/dL (0.3-1.0) 01/04/17 08:40 AST 27 U/L (13-39) 01/04/17 08:40 ALT 13 U/L (7-52) 01/04/17 08:40 Alkaline Phosphatase 69 U/L (34-104) 01/04/17 08:40 Ammonia 55 umol/L (16-53) H 01/04/17 08:40 Troponin I 0.03 ng/mL (0.01-0.05) 01/03/17 16:17 Total Protein 7.0 gm/dL (6.0-8.3) 01/04/17 08:40 Albumin 3.6 gm/dL (4.2-5.5) L 01/04/17 08:40 Globulin 3.4 gm/dL 01/04/17 08:40 Albumin/Globulin Ratio 1.1 (1.0-1.8) 01/04/17 08:40 Triglycerides 106 mg/dL (<150) 01/03/17 16:17 Cholesterol 178 mg/dL (<200) 01/03/17 16:17 LDL Cholesterol Direct 110 mg/dL (75-193) 01/03/17 16:17 HDL Cholesterol 40 mg/dL (23-92) 01/03/17 16:17 TSH 0.67 uIU/ml (0.34-5.60) 01/04/17 04:48 Urine Source CLEAN C 01/03/17 16:29 Urine Color YELLOW 01/03/17 16:29 Urine Clarity CLEAR (CLEAR) 01/03/17 16:29 Urine pH 6.0 (4.6 - 8.0) 01/03/17 16:29 Ur Specific [place] 1.010 (1.005-1.030) 01/03/17 16:29 Urine Protein NEGATIVE mg/dL (NEGATIVE) 01/03/17 16:29 Urine Glucose (UA) NEGATIVE mg/dL (NEGATIVE) 01/03/17 16:29 Urine Ketones NEGATIVE mg/dL (NEGATIVE) 01/03/17 16:29 Urine Blood SMALL (NEGATIVE) H 01/03/17 16:29 Urine Nitrate NEGATIVE (NEGATIVE) 01/03/17 16:29 Urine Bilirubin NEGATIVE (NEGATIVE) 01/03/17 16:29 Urine Urobilinogen 0.2 E.U./dL (0.2 - 1.0) 01/03/17 16:29 Ur Leukocyte Esterase TRACE (NEGATIVE) H 01/03/17 16:29 Urine RBC 2-5 /hpf (0-5) H 01/03/17 16:29 Urine WBC 2-5 /hpf (0-5) H 01/03/17 16:29 Ur Epithelial Cells OCCASIONAL /lpf (FEW) 01/03/17 16:29 Urine Bacteria FEW /hpf (NONE SEEN) 01/03/17 16:29 - Physical Exam Vitals and I&O: Vital Signs Temp 98.5 F 01/07/17 12:22 Pulse 48 01/07/17 12:22 Resp 20 01/07/17 12:22 BP 117/70 01/07/17 12:22 Pulse Ox 98 01/07/17 12:22 Intake & Output 01/06/17 01/07/17 01/07/17 18:59 06:59 18:59 Intake Total 1352 648 8952 Balance 1002 940 7862 Weight (lbs) 52.934 kg Intake: Intake, IV Amount 1000 1000 D5-0.45NS 1,000 ml @ 50 1000 1000 mls/hr IV .Q20H [facility] [place] Rx#: [id number] Oral 100 Active Medications: Current Medications Acetaminophen/Hydrocodone Bitart ([place] 10 Mg/325 Mg) 1 tab PO Q6H PRN PRN Reason: Pain (Mild) Stop: 03/04/17 20:30 Last Admin: 01/07/17 08:13 Dose: 1 tab Atropine Sulfate (Atropine) 1 mg IVP Q4HR PRN PRN Reason: HR BELOW 40 Stop: 03/04/17 23:30 Last Admin: 01/04/17 01:29 Dose: 1 mg Calcium Carbonate (Calcium Carb) 600 mg PO DAILY [facility] [place] Stop: 03/05/17 08:59 Last Admin: 01/06/17 09:12 Dose: 600 mg Divalproex Sodium (Depakote Dr) 250 mg PO TID TYRELL PRN Reason: Protocol Stop: 03/04/17 20:59 Last Admin: 01/06/17 20:43 Dose: 250 mg Furosemide (Lasix) 20 mg PO DAILY [facility] [place] Stop: 03/05/17 08:59 Last Admin: 01/07/17 08:13 Dose: 20 mg Dextrose/Sodium Chloride (D5-0.45ns) 1,000 mls @ 50 mls/hr IV .Q20H [facility] [place] Stop: 03/04/17 20:23 Last Admin: 01/07/17 12:53 Dose: 50 mls/hr Ceftriaxone Sodium 1 gm/ (Sodium Chloride) 50 mls @ 100 mls/hr IV Q24HR [facility] [place] Stop: 03/05/17 12:59 Last Admin: 01/06/17 13:06 Dose: 100 mls/hr Lacosamide (Vimpat) 400 mg PO BID [facility] [place] Stop: 03/05/17 09:59 Last Admin: 01/07/17 08:14 Dose: 400 mg Lactulose (Cephulac) 60 gm PO TID TYRELL Stop: 03/04/17 20:59 Last Admin: 01/07/17 08:14 Dose: Not Given Latanoprost (Xalatan 0.005% Ophth Soln) 1 drop EACH EYE HS TYRELL Stop: 03/04/17 20:59 Last Admin: 01/06/17 20:44 Dose: 1 drop Miscellaneous (Vte Chemical Prophylaxis Screen/ Admission) 1 ea MC PRN PRN PRN Reason: PROTOCOL Stop: 03/05/17 12:21 Nystatin (Nystop) 100,000 units TP BID TYRELL Stop: 03/05/17 11:29 Last Admin: 01/07/17 08:13 Dose: 100,000 units Ondansetron HCl (Zofran) 4 mg IV Q6H PRN PRN Reason: Nausea / Vomiting Stop: 03/06/17 18:33 Last Admin: 01/07/17 12:54 Dose: 4 mg Pantoprazole Sodium (Protonix) 40 mg PO DAILY TYRELL Stop: 03/05/17 08:59 Last Admin: 01/07/17 08:13 Dose: 40 mg Theophylline (Toby-Dur) 200 mg PO BID TYRELL Stop: 03/05/17 16:59 Last Admin: 01/07/17 08:13 Dose: 200 mg Assessment/Plan - Assessment Assessment: HEPATIC ENCEPHALOPATHY SICK SINUS SYNDROME ELEVATED BUN SEVERE MALNUTRITION ANEMIA HYPERNATREMIA HTN SCHIZOPHRENIA ACUTE UTI - Plan Plan: AM LABS IV ANTIBIOTICS
[2017-01-07] MEDS: cefTRIAXone 1 GM in Sodium Chloride 0.9% 50 ML IV SCH (13:20)
--- NOTE | 2017-01-07 14:28 | General Progress Note ---
Subjective - Review of Systems Service Date: 01/07/17 Events since last encounter: requested by Dr. Simpson, municipal court judge to place DDD pacemaker - HR in 30's patient unable to sign own consent, has conservator attempts made to contact conservator - unsuccessfully. data warehouse administrator informed of conundrum will likely require MD to certify medical necessity for pacemaker placement Objective - Results Result Diagrams: 01/05/17 06:43 01/05/17 06:43 Recent Labs: Laboratory Last Values WBC 7.8 Th/cmm (4.8-10.8) D 01/05/17 06:43 RBC 3.33 Mil/cmm (3.80-5.80) L 01/05/17 06:43 Hgb 11.3 gm/dL (12.6-17.4) L 01/05/17 06:43 Hct 33.6 % (39.0-49.0) L D 01/05/17 06:43 MCV 100.8 fl (80-99) H 01/05/17 06:43 MCH 33.8 pg (27.0-31.0) H 01/05/17 06:43 MCHC Differential 33.6 pg (28.0-36.0) 01/05/17 06:43 RDW 13.8 % (11.5-20.0) 01/05/17 06:43 Plt Count NOT ABLE TO PERFORM Th/cmm (150-400) D 01/05/17 06:43 MPV 9.6 fl 01/05/17 06:43 Neutrophils % 55.1 % (40.0-80.0) 01/04/17 08:40 Band Neutrophils % 2 % (0-10) 01/05/17 06:43 Lymphocytes % 29.1 % (20.0-50.0) 01/04/17 08:40 Monocytes % 9.5 % (2.0-10.0) 01/04/17 08:40 Eosinophils % 4.9 % (0.0-5.0) 01/04/17 08:40 Basophils % 1.4 % (0.0-2.0) 01/04/17 08:40 Neutrophils (Manual) 48 % (40-80) 01/05/17 06:43 Lymphocytes 29 % (20-50) 01/05/17 06:43 Monocytes 13 % (2-10) H 01/05/17 06:43 Eosinophils 5 % (0-5) 01/05/17 06:43 Basophils 1 % (0-3) 01/05/17 06:43 Metamyelocytes 2 % (0-0) H 01/05/17 06:43 Platelet Estimate DECREASED PLATELETS (NORMAL) 01/05/17 06:43 Platelet Morphology GIANT PLATELETS SEEN (NORMAL) 01/05/17 06:43 Anisocytosis 1+ 01/05/17 06:43 RBC Morph Micro Appear ABNORMAL (NORMAL) 01/05/17 06:43 PT 11.4 SECONDS (9.5-11.5) 01/03/17 16:17 INR 1.09 (0.5-1.4) 01/03/17 16:17 Sodium 140 mEq/L (136-145) 01/05/17 06:43 Potassium 4.1 mEq/L (3.5-5.1) 01/05/17 06:43 Chloride 107 mEq/L (98-107) 01/05/17 06:43 Carbon Dioxide 27.9 mEq/L (21.0-31.0) 01/05/17 06:43 Anion Gap 9.2 (7.0-16.0) 01/05/17 06:43 BUN 28 mg/dL (7-25) H 01/05/17 06:43 Creatinine 1.0 mg/dL (0.7-1.3) 01/05/17 06:43 Est GFR ( Amer) > 60.0 ml/min (>90) 01/05/17 06:43 Est GFR (Non-Af Amer) > 60.0 ml/min 01/05/17 06:43 BUN/Creatinine Ratio 28.0 01/05/17 06:43 Glucose 87 mg/dL (70-105) 01/05/17 06:43 Calcium 9.0 mg/dL (8.6-10.3) 01/05/17 06:43 Total Bilirubin 0.6 mg/dL (0.3-1.0) 01/04/17 08:40 AST 27 U/L (13-39) 01/04/17 08:40 ALT 13 U/L (7-52) 01/04/17 08:40 Alkaline Phosphatase 69 U/L (34-104) 01/04/17 08:40 Ammonia 55 umol/L (16-53) H 01/04/17 08:40 Troponin I 0.03 ng/mL (0.01-0.05) 01/03/17 16:17 Total Protein 7.0 gm/dL (6.0-8.3) 01/04/17 08:40 Albumin 3.6 gm/dL (4.2-5.5) L 01/04/17 08:40 Globulin 3.4 gm/dL 01/04/17 08:40 Albumin/Globulin Ratio 1.1 (1.0-1.8) 01/04/17 08:40 Triglycerides 106 mg/dL (<150) 01/03/17 16:17 Cholesterol 178 mg/dL (<200) 01/03/17 16:17 LDL Cholesterol Direct 110 mg/dL (75-193) 01/03/17 16:17 HDL Cholesterol 40 mg/dL (23-92) 01/03/17 16:17 TSH 0.67 uIU/ml (0.34-5.60) 01/04/17 04:48 Urine Source CLEAN C 01/03/17 16:29 Urine Color YELLOW 01/03/17 16:29 Urine Clarity CLEAR (CLEAR) 01/03/17 16:29 Urine pH 6.0 (4.6 - 8.0) 01/03/17 16:29 Ur Specific [place] 1.010 (1.005-1.030) 01/03/17 16:29 Urine Protein NEGATIVE mg/dL (NEGATIVE) 01/03/17 16:29 Urine Glucose (UA) NEGATIVE mg/dL (NEGATIVE) 01/03/17 16:29 Urine Ketones NEGATIVE mg/dL (NEGATIVE) 01/03/17 16:29 Urine Blood SMALL (NEGATIVE) H 01/03/17 16:29 Urine Nitrate NEGATIVE (NEGATIVE) 01/03/17 16:29 Urine Bilirubin NEGATIVE (NEGATIVE) 01/03/17 16:29 Urine Urobilinogen 0.2 E.U./dL (0.2 - 1.0) 01/03/17 16:29 Ur Leukocyte Esterase TRACE (NEGATIVE) H 01/03/17 16:29 Urine RBC 2-5 /hpf (0-5) H 01/03/17 16:29 Urine WBC 2-5 /hpf (0-5) H 01/03/17 16:29 Ur Epithelial Cells OCCASIONAL /lpf (FEW) 01/03/17 16:29 Urine Bacteria FEW /hpf (NONE SEEN) 01/03/17 16:29 - Physical Exam Vitals and I&O: Vital Signs Temp 98.5 F 01/07/17 12:22 Pulse 48 01/07/17 12:22 Resp 20 01/07/17 12:22 BP 117/70 01/07/17 12:22 Pulse Ox 98 01/07/17 12:22 Intake & Output 01/06/17 01/07/17 01/07/17 18:59 06:59 18:59 Intake Total 7271 396 3290 Balance 7813 144 6888 Weight (lbs) 52.934 kg Intake: Intake, IV Amount 1050 1000 D5-0.45NS 1,000 ml @ 50 1000 1000 mls/hr IV .Q20H [facility] Rx#: [id number] cefTRIAXone 1 gm In 50 Sodium Chloride 0.9% 50 ml @ 100 mls/hr IV Q24HR [facility] Rx#:[id number] Oral 100 Active Medications: Current Medications Acetaminophen/Hydrocodone Bitart ([place] 10 Mg/325 Mg) 1 tab PO Q6H PRN PRN Reason: Pain (Mild) Stop: 03/04/17 20:30 Last Admin: 01/07/17 13:17 Dose: 1 tab Atropine Sulfate (Atropine) 1 mg IVP Q4HR PRN PRN Reason: HR BELOW 40 Stop: 03/04/17 23:30 Last Admin: 01/04/17 01:29 Dose: 1 mg Calcium Carbonate (Calcium Carb) 600 mg PO DAILY [facility] Stop: 03/05/17 08:59 Last Admin: 01/07/17 09:00 Dose: 600 mg Divalproex Sodium (Depakote Dr) 250 mg PO TID TYRELL PRN Reason: Protocol Stop: 03/04/17 20:59 Last Admin: 01/07/17 09:00 Dose: 250 mg Furosemide (Lasix) 20 mg PO DAILY [facility] Stop: 03/05/17 08:59 Last Admin: 01/07/17 08:13 Dose: 20 mg Dextrose/Sodium Chloride (D5-0.45ns) 1,000 mls @ 50 mls/hr IV .Q20H [facility] Stop: 03/04/17 20:23 Last Admin: 01/07/17 12:53 Dose: 50 mls/hr Ceftriaxone Sodium 1 gm/ (Sodium Chloride) 50 mls @ 100 mls/hr IV Q24HR TYRELL Stop: 03/05/17 12:59 Last Admin: 01/07/17 13:20 Dose: 100 mls/hr Lacosamide (Vimpat) 400 mg PO BID TYRELL Stop: 03/05/17 09:59 Last Admin: 01/07/17 08:14 Dose: 400 mg Lactulose (Cephulac) 60 gm PO TID TYRELL Stop: 03/04/17 20:59 Last Admin: 01/07/17 08:14 Dose: Not Given Latanoprost (Xalatan 0.005% Ophth Soln) 1 drop EACH EYE HS TYRELL Stop: 03/04/17 20:59 Last Admin: 01/06/17 20:44 Dose: 1 drop Miscellaneous (Vte Chemical Prophylaxis Screen/ Admission) 1 ea MC PRN PRN PRN Reason: PROTOCOL Stop: 03/05/17 12:21 Nystatin (Nystop) 100,000 units TP BID TYRELL Stop: 03/05/17 11:29 Last Admin: 01/07/17 08:13 Dose: 100,000 units Ondansetron HCl (Zofran) 4 mg IV Q6H PRN PRN Reason: Nausea / Vomiting Stop: 03/06/17 18:33 Last Admin: 01/07/17 12:54 Dose: 4 mg Pantoprazole Sodium (Protonix) 40 mg PO DAILY TYRELL Stop: 03/05/17 08:59 Last Admin: 01/07/17 08:13 Dose: 40 mg Theophylline (Toby-Dur) 200 mg PO BID TYRELL Stop: 03/05/17 16:59 Last Admin: 01/07/17 08:13 Dose: 200 mg
[2017-01-07] MEDS ORDERED: Probiotic Screen MC PRN (15:51)
[2017-01-07] MEDS: Lactobacillus Rhamnosus 10 Billion CFU Capsule PO SCH (17:17)
[2017-01-08 07:08] LABS: % BASOPHILS 0.1 % (0.0-2.0); % LYMPHOCYTES 21.3 % (20.0-50.0); % MONOCYTES 13.9 % (2.0-10.0); % NEUTROPHILS 62.7 % (40.0-80.0); HEMATOCRIT 34.3 % (39.0-49.0); HEMOGLOBIN 11.8 gm/dL (12.6-17.4); MEAN CELL VOLUME 98.9 fl (80-99); MEAN CORPUSCULAR HGB CONC 34.4 pg (28.0-36.0); MEAN PLATELET VOLUME 10.1 fl; NEUTROPHILE ABSOLUTE 4.8 Th/cmm (1.8-8.0); RED BLOOD COUNT 3.47 Mil/cmm (3.80-5.80); RED CELL DISTRIBUTION WIDTH 14.1 % (11.5-20.0); WHITE BLOOD COUNT 7.8 Th/cmm (4.8-10.8)
[2017-01-08 07:18] LABS: INR 1.06 (0.5-1.4)
[2017-01-08 07:22] LABS: PLATELET COUNT 133 Th/cmm (150-400)
[2017-01-08 07:23] LABS: ALB/GLOB RATIO 1.1 (1.0-1.8); ALKALINE PHOSPHATASE 65 U/L (34-104); ANION GAP 10.2 (7.0-16.0); BILIRUBIN,TOTAL 0.6 mg/dL (0.3-1.0); BUN - UREA NITROGEN 19 mg/dL (7-25); BUN/CREATININE RATIO 17.3; CALCIUM SERUM 9.2 mg/dL (8.6-10.3); CARBON DIOXIDE 29.3 mEq/L (21.0-31.0); CHLORIDE 100 mEq/L (98-107); CREATININE - SERUM 1.1 mg/dL (0.7-1.3); GLUCOSE 124 mg/dL (70-105); POTASSIUM SERUM 3.5 mEq/L (3.5-5.1); SGOT 28 U/L (13-39); SGPT/ALT 15 U/L (7-52); SODIUM SERUM 136 mEq/L (136-145)
[2017-01-08] MEDS ORDERED: Midazolam 1mg/ml 2 ml vial IV ONE (08:02)
[2017-01-08] MEDS ORDERED: Meperidine 25 mg/mL 1mL Syr IVP PRN (08:56)
[2017-01-08] MEDS ORDERED: Lactated Ringer 1,000 ML IV SCH (09:00)
--- NOTE | 2017-01-08 10:09 | Diagnostic Imaging Report ---
Portable chest x-ray Time: 0 942 History: Pacemaker abnormality Allowing for portable technique the heart size is normal. No focal pulmonary parenchymal processes. No hilar or mediastinal abnormalities. Left-sided pacemaker is noted. The aortic arch calcified. Bony thorax remarkable for degenerative changes. Impression: No acute abnormalities.
--- NOTE | 2017-01-08 10:16 | Consultation ---
DATE OF CONSULTATION: 01/07/2017 REFERRING PHYSICIANS: Dr. Mj Simpson/Dr. Hernandez. REASON FOR CONSULTATION: Bradycardia in the 30s. Thank you for referring this patient to me. HISTORY OF PRESENT ILLNESS: This 66-year-old male was admitted to ICU because of altered level of consciousness and severe bradycardia. The patient has a past history of hypertension, schizophrenia, TIA, GE reflux, dementia, hepatic encephalopathy, UTI, and malnutrition. PHYSICAL EXAMINATION: The patient is unable to give any information. LABORATORY STUDIES: Noted and acceptable. PLAN: The patient has no family. Conservator was called and consent was signed for the procedure as recommended. We will schedule for surgery. JOB# [id number]
--- NOTE | 2017-01-08 10:19 | Progress Notes ---
DATE: 01/08/2017 SUBJECTIVE: The patient was seen in his room. The patient is awake, alert, oriented x 2-3 with episodes of confusion. The patient has one-to-one sitter for safety. Denies any pain or discomfort at this time. No shortness of breath. The patient appears to be comfortable, in no acute distress. According to the nurse, the patient had 2 episodes of seizure last night, Ativan given to control seizure. Otherwise, the patient appears to be comfortable at this time. OBJECTIVE: VITAL SIGNS: Temperature 97, heart rate of 57, blood pressure 136/78, respiration of 18, 98% on room air. HEENT: Head is atraumatic, normocephalic. Eyes: Bilateral conjunctivae are clear. Bilateral pupils are equally round and reactive. NECK: Supple. No JVD. CARDIOVASCULAR: S1 and S2, without murmur. PULMONARY: Clear to auscultation. GASTROINTESTINAL: Soft and nontender without guarding. MUSCULOSKELETAL: No edema, no clubbing, no cyanosis. ASSESSMENT: 1. Sick sinus syndrome. 2. Hepatic encephalopathy. 3. Hypertension. 4. History of cerebrovascular accident. 5. Gastroesophageal reflux disease. 6. Dementia. 7. Schizophrenia. 8. Urinary tract infection. 9. Seizure. 10. Glaucoma. 11. Gastroesophageal reflux disease. PLAN: The patient will undergo for a pacemaker placement. We will also consult neurologist for episodes of seizure for this patient. We will keep the patient on a seizure precaution, keep n.p.o. Treatment plans were discussed with the patient's nurse. Treatment plans were discussed with Dr. Hernandez. JOB# [id number]
[2017-01-08] MEDS: Theophylline 100 mg ER Tab PO SCH ×2 (10:38→17:06)
[2017-01-08] MEDS: Lactulose 10 Gm/15 mL 30mL UDC PO SCH ×2 (10:38→20:39)
[2017-01-08] MEDS: NYSTATIN 100000 UNITS/GM POWD TP SCH ×2 (10:38→17:06)
--- NOTE | 2017-01-08 10:54 | Operative Report ---
DATE OF SURGERY: 01/08/2017 PREOPERATIVE DIAGNOSES: 1. Sick sinus syndrome. 2. Schizophrenia. 3. Hypertension. 4. Dementia. 5. Seizure disorder. POSTOPERATIVE DIAGNOSES: 1. Sick sinus syndrome. 2. Schizophrenia. 3. Hypertension. 4. Dementia. 5. Seizure disorder. OPERATION DONE: Placement of DDD pacemaker under ultrasound and fluoroscopy. SURGEON: Yuridia Hernandez M.D. ANESTHESIA: MAC. ANESTHESIOLOGIST: Jen Allen M.D. ESTIMATED BLOOD LOSS: 5 mL. INDICATIONS FOR SURGERY: The patient with heart rate in the 30s not responding to medications ____ medications. Cocoa Powder Mixer Operator, Dr. Mj Simpson, requested pacemaker placement. OPERATIVE FINDINGS: A lead culture capture at 1.5 volts. T wave at 2.1 millivolts, [id number]. The right ventricular lead capture of 2.8 volts. R wave at 5.1 millivolts, resistance 838 ohms. A Biotronik atrial lead was used Solia S45, serial number [id number]. The right ventricular lead is Solia S45, serial number [id number]. The pacemaker generator is Eluna 8 DR-T Biotronik, serial number [id number]. This is MRI compatible. DESCRIPTION OF PROCEDURE: The patient was given IV sedation. The left chest was prepped with ChloraPrep and draped in appropriate manner. Lidocaine 1% was used to infiltrate area identified on ultrasound. Incision was made and a size 18 needle was ____. The guidewire was inserted under fluoroscopy and ____ into inferior vena cava. The ventricular lead was inserted after the introducer was placed over the guidewire in a good location in the right ventricular apex was made following which the screw was deployed. The atrial lead was next introduced and suitable location was found. This was screwed in place as well. Following satisfactory hemostasis, the leads were secured with 2-0 silk and connected to the generator and placed in a subcutaneous pocket. The incision was closed with running suture of 3-0 Vicryl subcutaneously and the skin with subcuticular suture of 4-0 Vicryl. Sterile dressing was placed over this. The patient tolerated the procedure well. JOB# [id number]
[2017-01-08] MEDS: cefTRIAXone 1 GM in Sodium Chloride 0.9% 50 ML IV SCH (12:07)
[2017-01-08] MEDS: Lactobacillus Rhamnosus 10 Billion CFU Capsule PO SCH (12:27)
[2017-01-08] MEDS: Pantoprazole 40 mg EC Tab PO SCH (12:31)
[2017-01-08] MEDS: Hydrocodone/APAP 10 mg/325 mg Tab PO PRN ×2 (12:49→20:56)
[2017-01-09] MEDS: D5-0.45NS 1,000 ML IV SCH (05:59)
[2017-01-09] MEDS: NYSTATIN 100000 UNITS/GM POWD TP SCH ×2 (08:44→16:34)
[2017-01-09] MEDS: Pantoprazole 40 mg EC Tab PO SCH (08:45)
[2017-01-09] MEDS: Theophylline 100 mg ER Tab PO SCH ×2 (08:45→16:34)
[2017-01-09] MEDS: Lactobacillus Rhamnosus 10 Billion CFU Capsule PO SCH (08:45)
[2017-01-09] MEDS: Lactulose 10 Gm/15 mL 30mL UDC PO SCH ×3 (08:46→21:47)
--- NOTE | 2017-01-09 11:23 | General Progress Note ---
Subjective - Review of Systems Events since last encounter: patient awake, alert no distress Objective - Results Result Diagrams: 01/08/17 06:22 01/08/17 06:22 Recent Labs: Laboratory Last Values WBC 7.8 Th/cmm (4.8-10.8) 01/08/17 06:22 RBC 3.47 Mil/cmm (3.80-5.80) L 01/08/17 06:22 Hgb 11.8 gm/dL (12.6-17.4) L 01/08/17 06:22 Hct 34.3 % (39.0-49.0) L 01/08/17 06:22 MCV 98.9 fl (80-99) 01/08/17 06:22 MCH 34.0 pg (27.0-31.0) H 01/08/17 06:22 MCHC Differential 34.4 pg (28.0-36.0) 01/08/17 06:22 RDW 14.1 % (11.5-20.0) 01/08/17 06:22 Plt Count 133 Th/cmm (150-400) L D 01/08/17 06:22 MPV 10.1 fl 01/08/17 06:22 Neutrophils % 62.7 % (40.0-80.0) 01/08/17 06:22 Band Neutrophils % 2 % (0-10) 01/05/17 06:43 Lymphocytes % 21.3 % (20.0-50.0) 01/08/17 06:22 Monocytes % 13.9 % (2.0-10.0) H 01/08/17 06:22 Eosinophils % 2.0 % (0.0-5.0) 01/08/17 06:22 Basophils % 0.1 % (0.0-2.0) 01/08/17 06:22 Neutrophils (Manual) 48 % (40-80) 01/05/17 06:43 Lymphocytes 29 % (20-50) 01/05/17 06:43 Monocytes 13 % (2-10) H 01/05/17 06:43 Eosinophils 5 % (0-5) 01/05/17 06:43 Basophils 1 % (0-3) 01/05/17 06:43 Metamyelocytes 2 % (0-0) H 01/05/17 06:43 Platelet Estimate DECREASED PLATELETS (NORMAL) 01/05/17 06:43 Platelet Morphology GIANT PLATELETS SEEN (NORMAL) 01/05/17 06:43 Anisocytosis 1+ 01/05/17 06:43 RBC Morph Micro Appear ABNORMAL (NORMAL) 01/05/17 06:43 PT 11.0 SECONDS (9.5-11.5) 01/08/17 06:22 INR 1.06 (0.5-1.4) 01/08/17 06:22 Sodium 136 mEq/L (136-145) 01/08/17 06:22 Potassium 3.5 mEq/L (3.5-5.1) 01/08/17 06:22 Chloride 100 mEq/L (98-107) 01/08/17 06:22 Carbon Dioxide 29.3 mEq/L (21.0-31.0) 01/08/17 06:22 Anion Gap 10.2 (7.0-16.0) 01/08/17 06:22 BUN 19 mg/dL (7-25) 01/08/17 06:22 Creatinine 1.1 mg/dL (0.7-1.3) 01/08/17 06:22 Est GFR ( Amer) > 60.0 ml/min (>90) 01/08/17 06:22 Est GFR (Non-Af Amer) > 60.0 ml/min 01/08/17 06:22 BUN/Creatinine Ratio 17.3 01/08/17 06:22 Glucose 124 mg/dL (70-105) H 01/08/17 06:22 POC Glucose 138 MG/DL (70 - 105) H 01/08/17 06:26 Calcium 9.2 mg/dL (8.6-10.3) 01/08/17 06:22 Total Bilirubin 0.6 mg/dL (0.3-1.0) 01/08/17 06:22 AST 28 U/L (13-39) 01/08/17 06:22 ALT 15 U/L (7-52) 01/08/17 06:22 Alkaline Phosphatase 65 U/L (34-104) 01/08/17 06:22 Ammonia 55 umol/L (16-53) H 01/04/17 08:40 Troponin I 0.03 ng/mL (0.01-0.05) 01/03/17 16:17 Total Protein 6.4 gm/dL (6.0-8.3) 01/08/17 06:22 Albumin 3.3 gm/dL (4.2-5.5) L 01/08/17 06:22 Globulin 3.1 gm/dL 01/08/17 06:22 Albumin/Globulin Ratio 1.1 (1.0-1.8) 01/08/17 06:22 Triglycerides 106 mg/dL (<150) 01/03/17 16:17 Cholesterol 178 mg/dL (<200) 01/03/17 16:17 LDL Cholesterol Direct 110 mg/dL (75-193) 01/03/17 16:17 HDL Cholesterol 40 mg/dL (23-92) 01/03/17 16:17 TSH 0.67 uIU/ml (0.34-5.60) 01/04/17 04:48 Urine Source CLEAN C 01/03/17 16:29 Urine Color YELLOW 01/03/17 16:29 Urine Clarity CLEAR (CLEAR) 01/03/17 16:29 Urine pH 6.0 (4.6 - 8.0) 01/03/17 16:29 Ur Specific [place] 1.010 (1.005-1.030) 01/03/17 16:29 Urine Protein NEGATIVE mg/dL (NEGATIVE) 01/03/17 16:29 Urine Glucose (UA) NEGATIVE mg/dL (NEGATIVE) 01/03/17 16:29 Urine Ketones NEGATIVE mg/dL (NEGATIVE) 01/03/17 16:29 Urine Blood SMALL (NEGATIVE) H 01/03/17 16:29 Urine Nitrate NEGATIVE (NEGATIVE) 01/03/17 16:29 Urine Bilirubin NEGATIVE (NEGATIVE) 01/03/17 16:29 Urine Urobilinogen 0.2 E.U./dL (0.2 - 1.0) 01/03/17 16:29 Ur Leukocyte Esterase TRACE (NEGATIVE) H 01/03/17 16:29 Urine RBC 2-5 /hpf (0-5) H 01/03/17 16:29 Urine WBC 2-5 /hpf (0-5) H 01/03/17 16:29 Ur Epithelial Cells OCCASIONAL /lpf (FEW) 01/03/17 16:29 Urine Bacteria FEW /hpf (NONE SEEN) 01/03/17 16:29 - Physical Exam Vitals and I&O: Vital Signs Temp 96.8 F 01/09/17 04:00 Pulse 67 01/09/17 08:05 Resp 20 01/09/17 08:05 BP 146/83 01/09/17 08:45 Pulse Ox 97 01/09/17 08:05 Intake & Output 01/08/17 01/09/17 01/09/17 18:59 06:59 18:59 Intake Total 1300 200 Output Total 150 Balance 1300 50 Weight (lbs) 54.885 kg 56.518 kg Intake: Intake, IV Amount 1000 D5-0.45NS 1,000 ml @ 50 1000 mls/hr IV .Q20H [facility] Rx#: [id number] Oral 300 200 Output: Urine 150 Other: # Voids 2 2 # Bowel Movements 124 Active Medications: Current Medications Acetaminophen/Hydrocodone Bitart ([place] 10 Mg/325 Mg) 1 tab PO Q6H PRN PRN Reason: Pain (Mild) Stop: 03/04/17 20:30 Last Admin: 01/08/17 20:56 Dose: 1 tab Atropine Sulfate (Atropine) 1 mg IVP Q4HR PRN PRN Reason: HR BELOW 40 Stop: 03/04/17 23:30 Last Admin: 01/04/17 01:29 Dose: 1 mg Calcium Carbonate (Calcium Carb) 600 mg PO DAILY [facility] Stop: 03/05/17 08:59 Last Admin: 01/09/17 08:45 Dose: 600 mg Divalproex Sodium (Depakote Dr) 250 mg PO TID TYRELL PRN Reason: Protocol Stop: 03/04/17 20:59 Last Admin: 01/09/17 08:45 Dose: 250 mg Furosemide (Lasix) 20 mg PO DAILY [facility] Stop: 03/05/17 08:59 Last Admin: 01/09/17 08:45 Dose: 20 mg Dextrose/Sodium Chloride (D5-0.45ns) 1,000 mls @ 50 mls/hr IV .Q20H [facility] Stop: 03/04/17 20:23 Last Admin: 01/09/17 05:59 Dose: 50 mls/hr Ceftriaxone Sodium 1 gm/ (Sodium Chloride) 50 mls @ 100 mls/hr IV Q24HR [facility] Stop: 03/05/17 12:59 Last Admin: 01/08/17 12:07 Dose: Not Given Lacosamide (Vimpat) 400 mg PO BID [facility] Stop: 03/05/17 09:59 Last Admin: 01/09/17 08:44 Dose: 400 mg Lactobacillus Rhamnosus (Culturelle) 1 each PO DAILY [facility] Stop: 03/08/17 15:59 Last Admin: 01/09/17 08:45 Dose: 1 each Lactulose (Cephulac) 60 gm PO TID TYRE[facility] Stop: 03/04/17 20:59 Last Admin: 01/09/17 08:46 Dose: Not Given Latanoprost (Xalatan 0.005% Ophth Soln) 1 drop EACH EYE HS TYRELL Stop: 03/04/17 20:59 Last Admin: 01/08/17 20:39 Dose: 1 drop Lorazepam (Ativan) 1 mg IVP Q4HR PRN; Protocol PRN Reason: Seizures Stop: 03/09/17 05:58 Last Admin: 01/08/17 06:13 Dose: 1 mg Miscellaneous (Vte Chemical Prophylaxis Screen/ Admission) 1 ea MC PRN PRN PRN Reason: PROTOCOL Stop: 03/05/17 12:21 Miscellaneous (Probiotic Screen) 1 ea PRN PRN PRN Reason: PROTOCOL Stop: 03/08/17 15:50 Nystatin (Nystop) 100,000 units TP BID [facility] Stop: 03/05/17 11:29 Last Admin: 01/09/17 08:44 Dose: 100,000 units Ondansetron HCl (Zofran) 4 mg IV Q6H PRN PRN Reason: Nausea / Vomiting Stop: 03/06/17 18:33 Last Admin: 01/07/17 18:11 Dose: 4 mg Pantoprazole Sodium (Protonix) 40 mg PO DAILY [facility] Stop: 03/05/17 08:59 Last Admin: 01/09/17 08:45 Dose: 40 mg Theophylline (Toby-Dur) 200 mg PO BID [facility] Stop: 03/05/17 16:59 Last Admin: 01/09/17 08:45 Dose: 200 mg Assessment/Plan - Assessment Assessment: HEPATIC ENCEPHALOPATHY SICK SINUS SYNDROME ELEVATED BUN SEVERE MALNUTRITION ANEMIA HYPERNATREMIA HTN SCHIZOPHRENIA ACUTE UTI - Plan Plan: AM LABS IV ANTIBIOTICS Nutritional Asmnt/Malnutr-PDOC - Dietary Evaluation Malnutrition Findings (Please click <Entered> for more info): Nutritional Asmnt/Malnutrition Start: 01/08/17 12: 11 Text: Status: Complete Freq: Document 01/08/17 12:11 CARMELO (Rec: 01/08/17 12:22 CARMELO JOSE LUIS- [email or web address]) Nutritional Asmnt/Malnutrition Patient General Information Nutritional Screening Moderate Risk Screening Diagnosis Sick sinus syndrome, hepatic encephalopathy Pertinent Medical Hx/Surgical Hx HTN, CVA, TIA, GERD, schizophrenia, dementia Subjective Information Patient was admitted from SNF. Per nursing notes, several episodes of vomiting since admission. Had surgery this morning for pacemaker. Patient eating lunch at time of visit with help of [employer]. Appetite is good and eating without difficulty. Patient noted to be missing teeth. Current Diet Order/ Nutrition Support 2gm sodium mechanical soft Patient / S.O Not Indicated Pertinent Medications calcium carbonate, D5-0.45NS @ 50ml/hr, lasix, lactated ringers, culturelle, lactulose , zofran, protonix Pertinent Labs (01/08) albumin 3.3 (decreasing ) Nutritional Hx/Data Height 1.57 m Height (Calculated Centimeters) 157.5 Current Weight (lbs) 54.885 kg Weight (Calculated Kilograms) 54.9 Weight (Calculated Grams) 96813.7 [place] Body Weight 118 % [place] Body Weight 102 Recent Weight Change No Weight Status Approriate GI Symptoms Food Allergies No Cultural/Ethnic/Presybeterian Belief None indicated Usual diet at home 2gm sodium mechanical soft Skin Integrity/Comment: Bill Nickerson Estimated Nutritional Goals BEE in Kcals: Using Current wt Calories/Kcals/Kg 25-30 kcal/kg Kcals Calculated ~7370-6861 kcal/day Protein: Using Current wt Protein g/k-1.2 gm/kg Protein Calculated 55-65 gm/day Fluid: ml 1246-2333 ml/day (1 ml/kcal) Nutritional Problem 1. Problem Problem Altered GI FUnction related to Etiology unknown etiology Signs/Symptoms: Per nursing flowsheet, patient with nausea, vomiting, undigested food, constipation Intervention/Recommendation Comments 1. Continue 2gm sodium, mechanical soft diet as tolerated by patient. 2. Consider anti-emetic medication and GI mobility agents to prevent nausea and constipation. Expected Outcomes/Goals Expected Outcomes/Goals oral intake to meet >75% of estimated nutrient needs, nutrition related labs normal, weight stable.
--- NOTE | 2017-01-09 11:38 | General Progress Note ---
Subjective - Review of Systems Service Date: 01/09/17 Events since last encounter: pacing and sensing incision is clean Objective - Results Result Diagrams: 01/08/17 06:22 01/08/17 06:22 Recent Labs: Laboratory Last Values WBC 7.8 Th/cmm (4.8-10.8) 01/08/17 06:22 RBC 3.47 Mil/cmm (3.80-5.80) L 01/08/17 06:22 Hgb 11.8 gm/dL (12.6-17.4) L 01/08/17 06:22 Hct 34.3 % (39.0-49.0) L 01/08/17 06:22 MCV 98.9 fl (80-99) 01/08/17 06:22 MCH 34.0 pg (27.0-31.0) H 01/08/17 06:22 MCHC Differential 34.4 pg (28.0-36.0) 01/08/17 06:22 RDW 14.1 % (11.5-20.0) 01/08/17 06:22 Plt Count 133 Th/cmm (150-400) L D 01/08/17 06:22 MPV 10.1 fl 01/08/17 06:22 Neutrophils % 62.7 % (40.0-80.0) 01/08/17 06:22 Band Neutrophils % 2 % (0-10) 01/05/17 06:43 Lymphocytes % 21.3 % (20.0-50.0) 01/08/17 06:22 Monocytes % 13.9 % (2.0-10.0) H 01/08/17 06:22 Eosinophils % 2.0 % (0.0-5.0) 01/08/17 06:22 Basophils % 0.1 % (0.0-2.0) 01/08/17 06:22 Neutrophils (Manual) 48 % (40-80) 01/05/17 06:43 Lymphocytes 29 % (20-50) 01/05/17 06:43 Monocytes 13 % (2-10) H 01/05/17 06:43 Eosinophils 5 % (0-5) 01/05/17 06:43 Basophils 1 % (0-3) 01/05/17 06:43 Metamyelocytes 2 % (0-0) H 01/05/17 06:43 Platelet Estimate DECREASED PLATELETS (NORMAL) 01/05/17 06:43 Platelet Morphology GIANT PLATELETS SEEN (NORMAL) 01/05/17 06:43 Anisocytosis 1+ 01/05/17 06:43 RBC Morph Micro Appear ABNORMAL (NORMAL) 01/05/17 06:43 PT 11.0 SECONDS (9.5-11.5) 01/08/17 06:22 INR 1.06 (0.5-1.4) 01/08/17 06:22 Sodium 136 mEq/L (136-145) 01/08/17 06:22 Potassium 3.5 mEq/L (3.5-5.1) 01/08/17 06:22 Chloride 100 mEq/L (98-107) 01/08/17 06:22 Carbon Dioxide 29.3 mEq/L (21.0-31.0) 01/08/17 06:22 Anion Gap 10.2 (7.0-16.0) 01/08/17 06:22 BUN 19 mg/dL (7-25) 01/08/17 06:22 Creatinine 1.1 mg/dL (0.7-1.3) 01/08/17 06:22 Est GFR ( Amer) > 60.0 ml/min (>90) 01/08/17 06:22 Est GFR (Non-Af Amer) > 60.0 ml/min 01/08/17 06:22 BUN/Creatinine Ratio 17.3 01/08/17 06:22 Glucose 124 mg/dL (70-105) H 01/08/17 06:22 POC Glucose 138 MG/DL (70 - 105) H 01/08/17 06:26 Calcium 9.2 mg/dL (8.6-10.3) 01/08/17 06:22 Total Bilirubin 0.6 mg/dL (0.3-1.0) 01/08/17 06:22 AST 28 U/L (13-39) 01/08/17 06:22 ALT 15 U/L (7-52) 01/08/17 06:22 Alkaline Phosphatase 65 U/L (34-104) 01/08/17 06:22 Ammonia 55 umol/L (16-53) H 01/04/17 08:40 Troponin I 0.03 ng/mL (0.01-0.05) 01/03/17 16:17 Total Protein 6.4 gm/dL (6.0-8.3) 01/08/17 06:22 Albumin 3.3 gm/dL (4.2-5.5) L 01/08/17 06:22 Globulin 3.1 gm/dL 01/08/17 06:22 Albumin/Globulin Ratio 1.1 (1.0-1.8) 01/08/17 06:22 Triglycerides 106 mg/dL (<150) 01/03/17 16:17 Cholesterol 178 mg/dL (<200) 01/03/17 16:17 LDL Cholesterol Direct 110 mg/dL (75-193) 01/03/17 16:17 HDL Cholesterol 40 mg/dL (23-92) 01/03/17 16:17 TSH 0.67 uIU/ml (0.34-5.60) 01/04/17 04:48 Urine Source CLEAN C 01/03/17 16:29 Urine Color YELLOW 01/03/17 16:29 Urine Clarity CLEAR (CLEAR) 01/03/17 16:29 Urine pH 6.0 (4.6 - 8.0) 01/03/17 16:29 Ur Specific [place] 1.010 (1.005-1.030) 01/03/17 16:29 Urine Protein NEGATIVE mg/dL (NEGATIVE) 01/03/17 16:29 Urine Glucose (UA) NEGATIVE mg/dL (NEGATIVE) 01/03/17 16:29 Urine Ketones NEGATIVE mg/dL (NEGATIVE) 01/03/17 16:29 Urine Blood SMALL (NEGATIVE) H 01/03/17 16:29 Urine Nitrate NEGATIVE (NEGATIVE) 01/03/17 16:29 Urine Bilirubin NEGATIVE (NEGATIVE) 01/03/17 16:29 Urine Urobilinogen 0.2 E.U./dL (0.2 - 1.0) 01/03/17 16:29 Ur Leukocyte Esterase TRACE (NEGATIVE) H 01/03/17 16:29 Urine RBC 2-5 /hpf (0-5) H 01/03/17 16:29 Urine WBC 2-5 /hpf (0-5) H 01/03/17 16:29 Ur Epithelial Cells OCCASIONAL /lpf (FEW) 01/03/17 16:29 Urine Bacteria FEW /hpf (NONE SEEN) 01/03/17 16:29 - Physical Exam Vitals and I&O: Vital Signs Temp 96.8 F 01/09/17 04:00 Pulse 67 01/09/17 08:05 Resp 20 01/09/17 08:05 BP 146/83 01/09/17 08:45 Pulse Ox 97 01/09/17 08:05 Intake & Output 01/08/17 01/09/17 01/09/17 18:59 06:59 18:59 Intake Total 1300 200 Output Total 150 Balance 1300 50 Weight (lbs) 54.885 kg 56.518 kg Intake: Intake, IV Amount 1000 D5-0.45NS 1,000 ml @ 50 1000 mls/hr IV .Q20H [facility] Rx#: [id number] Oral 300 200 Output: Urine 150 Other: # Voids 2 2 # Bowel Movements 124 Active Medications: Current Medications Acetaminophen/Hydrocodone Bitart ([place] 10 Mg/325 Mg) 1 tab PO Q6H PRN PRN Reason: Pain (Mild) Stop: 03/04/17 20:30 Last Admin: 01/08/17 20:56 Dose: 1 tab Atropine Sulfate (Atropine) 1 mg IVP Q4HR PRN PRN Reason: HR BELOW 40 Stop: 03/04/17 23:30 Last Admin: 01/04/17 01:29 Dose: 1 mg Calcium Carbonate (Calcium Carb) 600 mg PO DAILY [facility] Stop: 03/05/17 08:59 Last Admin: 01/09/17 08:45 Dose: 600 mg Divalproex Sodium (Depakote Dr) 250 mg PO TID TYRELL PRN Reason: Protocol Stop: 03/04/17 20:59 Last Admin: 01/09/17 08:45 Dose: 250 mg Furosemide (Lasix) 20 mg PO DAILY [facility] Stop: 03/05/17 08:59 Last Admin: 01/09/17 08:45 Dose: 20 mg Dextrose/Sodium Chloride (D5-0.45ns) 1,000 mls @ 50 mls/hr IV .Q20H [facility] Stop: 03/04/17 20:23 Last Admin: 01/09/17 05:59 Dose: 50 mls/hr Ceftriaxone Sodium 1 gm/ (Sodium Chloride) 50 mls @ 100 mls/hr IV Q24HR [facility] Stop: 03/05/17 12:59 Last Admin: 01/08/17 12:07 Dose: Not Given Lacosamide (Vimpat) 400 mg PO BID [facility] Stop: 03/05/17 09:59 Last Admin: 01/09/17 08:44 Dose: 400 mg Lactobacillus Rhamnosus (Culturelle) 1 each PO DAILY [facility] Stop: 03/08/17 15:59 Last Admin: 01/09/17 08:45 Dose: 1 each Lactulose (Cephulac) 60 gm PO TID [facility] Stop: 03/04/17 20:59 Last Admin: 01/09/17 08:46 Dose: Not Given Latanoprost (Xalatan 0.005% Ophth Soln) 1 drop EACH EYE HS [facility]YRE[facility] Stop: 03/04/17 20:59 Last Admin: 01/08/17 20:39 Dose: 1 drop Lorazepam (Ativan) 1 mg IVP Q4HR PRN; Protocol PRN Reason: Seizures Stop: 03/09/17 05:58 Last Admin: 01/08/17 06:13 Dose: 1 mg Miscellaneous (Vte Chemical Prophylaxis Screen/ Admission) 1 ea MC PRN PRN PRN Reason: PROTOCOL Stop: 03/05/17 12:21 Miscellaneous (Probiotic Screen) 1 ea PRN PRN PRN Reason: PROTOCOL Stop: 03/08/17 15:50 Nystatin (Nystop) 100,000 units TP BID [facility] Stop: 03/05/17 11:29 Last Admin: 01/09/17 08:44 Dose: 100,000 units Ondansetron HCl (Zofran) 4 mg IV Q6H PRN PRN Reason: Nausea / Vomiting Stop: 03/06/17 18:33 Last Admin: 01/07/17 18:11 Dose: 4 mg Pantoprazole Sodium (Protonix) 40 mg PO DAILY [facility] Stop: 03/05/17 08:59 Last Admin: 01/09/17 08:45 Dose: 40 mg Theophylline (Toby-Dur) 200 mg PO BID [facility] Stop: 03/05/17 16:59 Last Admin: 01/09/17 08:45 Dose: 200 mg Nutritional Asmnt/Malnutr-PDOC - Dietary Evaluation Malnutrition Findings (Please click <Entered> for more info): Nutritional Asmnt/Malnutrition Start: 01/08/17 12: 11 Text: Status: Complete Freq: Document 01/08/17 12:11 [email or web address] (Rec: 01/08/17 12:22 CARMELO JOSE LUIS- FNS1) Nutritional Asmnt/Malnutrition Patient General Information Nutritional Screening Moderate Risk Screening Diagnosis Sick sinus syndrome, hepatic encephalopathy Pertinent Medical Hx/Surgical Hx HTN, CVA, TIA, GERD, schizophrenia, dementia Subjective Information Patient was admitted from SNF. Per nursing notes, several episodes of vomiting since admission. Had surgery this morning for pacemaker. Patient eating lunch at time of visit with help of [employer]. Appetite is good and eating without difficulty. Patient noted to be missing teeth. Current Diet Order/ Nutrition Support 2gm sodium mechanical soft Patient / S.O Not Indicated Pertinent Medications calcium carbonate, D5-0.45NS @ 50ml/hr, lasix, lactated ringers, culturelle, lactulose , zofran, protonix Pertinent Labs (01/08) albumin 3.3 (decreasing ) Nutritional Hx/Data Height 1.57 m Height (Calculated Centimeters) 157.5 Current Weight (lbs) 54.885 kg Weight (Calculated Kilograms) 54.9 Weight (Calculated Grams) 43755.7 [place] Body Weight 118 % [place] Body Weight 102 Recent Weight Change No Weight Status Approriate GI Symptoms Food Allergies No Cultural/Ethnic/Buddhism Belief None indicated Usual diet at home 2gm sodium mechanical soft Skin Integrity/Comment: Bill Nickerson Estimated Nutritional Goals BEE in Kcals: Using Current wt Calories/Kcals/Kg 25-30 kcal/kg Kcals Calculated ~4640-7626 kcal/day Protein: Using Current wt Protein g/k-1.2 gm/kg Protein Calculated 55-65 gm/day Fluid: ml 4352-2766 ml/day (1 ml/kcal) Nutritional Problem 1. Problem Problem Altered GI FUnction related to Etiology unknown etiology Signs/Symptoms: Per nursing flowsheet, patient with nausea, vomiting, undigested food, constipation Intervention/Recommendation Comments 1. Continue 2gm sodium, mechanical soft diet as tolerated by patient. 2. Consider anti-emetic medication and GI mobility agents to prevent nausea and constipation. Expected Outcomes/Goals Expected Outcomes/Goals oral intake to meet >75% of estimated nutrient needs, nutrition related labs normal, weight stable.
[2017-01-09] MEDS: cefTRIAXone 1 GM in Sodium Chloride 0.9% 50 ML IV SCH (13:28)
--- NOTE | 2017-01-09 20:05 | Consultation ---
DATE OF CONSULTATION: 01/09/2017 NEUROLOGY CONSULT HISTORY OF PRESENT ILLNESS: This is a 66-year-old. The patient has seizure, but none at the moment, history of seizure. The patient is on Vimpat 400 b.i.d. PAST MEDICAL HISTORY: Hepatic encephalopathy, hypertension, previous stroke, dementia, schizophrenia, seizures as above. The patient is also noted to have bradycardia with sick sinus syndrome. The patient has pacemaker. MEDICATIONS: Depakote 250 t.i.d., Vimpat 400 q.12 hours, and lorazepam p.r.n. PHYSICAL EXAMINATION: VITAL SIGNS: Temperature 96.8, blood pressure 140/80, and pulse is 65. NECK: Supple, no bruits. HEART: Sounds S1 and S2. MOTOR: The patient has a scar on the left upper chest from recent procedure. NEUROLOGIC: Awake. The patient is confused. Able to name objects. Did not know what day, what month. Cranial: No visual field defect. No facial weakness. Motor: He has weakness in left arm. He has also weakness in left and sounds like probably ulna involvement with the atrophy of the hand. Legs about 4/4 plus. Reflexes are 1-2+ in the upper extremities. Knees are about 2+ to -3, ankles 1. IMPRESSION: 1. Seizure. 2. Bradycardia sick sinus syndrome. 3. Schizophrenia. 4. Hypertension. PLAN: Continue present medications. JOB# [id number]
[2017-01-10] MEDS: D5-0.45NS 1,000 ML IV SCH (05:27)
--- NOTE | 2017-01-10 07:33 | Progress Notes ---
DATE: 01/10/2017 SUBJECTIVE: The patient is lying in bed. Somewhat sleepy, will awaken. No repeat seizure. MEDICATIONS: Vimpat 400 b.i.d. OBJECTIVE: VITAL SIGNS: Temperature 97.2, blood pressure 135/76, pulse is around 70. NECK: Supple. No bruits. HEART: Sounds S1, S2. LUNGS: Clear. NEUROLOGICAL: The patient is awake, alert. Follows instructions. Moves both upper extremities. The patient's weakness is in the left arm, especially left hand with atrophy. ASSESSMENT: 1. Seizure. The patient on Vimpat. Continue with that. 2. Bradycardia, sick sinus syndrome. 3. Schizophrenia. 4. Hypertension. PLAN: Continue present management. JOB# [id number]
[2017-01-10] MEDS: Theophylline 100 mg ER Tab PO SCH ×2 (08:39→16:09)
[2017-01-10] MEDS: Pantoprazole 40 mg EC Tab PO SCH (08:40)
[2017-01-10] MEDS: Lactobacillus Rhamnosus 10 Billion CFU Capsule PO SCH (08:44)
[2017-01-10] MEDS: NYSTATIN 100000 UNITS/GM POWD TP SCH ×2 (08:45→16:20)
[2017-01-10] MEDS: Lactulose 10 Gm/15 mL 30mL UDC PO SCH ×2 (08:45→16:16)
[2017-01-10] MEDS: cefTRIAXone 1 GM in Sodium Chloride 0.9% 50 ML IV SCH (12:33)
--- NOTE | 2017-01-10 12:58 | General Progress Note ---
Subjective - Review of Systems Events since last encounter: no distress patient awake , alert Objective - Results Result Diagrams: 01/08/17 06:22 01/08/17 06:22 Recent Labs: Laboratory Last Values WBC 7.8 Th/cmm (4.8-10.8) 01/08/17 06:22 RBC 3.47 Mil/cmm (3.80-5.80) L 01/08/17 06:22 Hgb 11.8 gm/dL (12.6-17.4) L 01/08/17 06:22 Hct 34.3 % (39.0-49.0) L 01/08/17 06:22 MCV 98.9 fl (80-99) 01/08/17 06:22 MCH 34.0 pg (27.0-31.0) H 01/08/17 06:22 MCHC Differential 34.4 pg (28.0-36.0) 01/08/17 06:22 RDW 14.1 % (11.5-20.0) 01/08/17 06:22 Plt Count 133 Th/cmm (150-400) L D 01/08/17 06:22 MPV 10.1 fl 01/08/17 06:22 Neutrophils % 62.7 % (40.0-80.0) 01/08/17 06:22 Band Neutrophils % 2 % (0-10) 01/05/17 06:43 Lymphocytes % 21.3 % (20.0-50.0) 01/08/17 06:22 Monocytes % 13.9 % (2.0-10.0) H 01/08/17 06:22 Eosinophils % 2.0 % (0.0-5.0) 01/08/17 06:22 Basophils % 0.1 % (0.0-2.0) 01/08/17 06:22 Neutrophils (Manual) 48 % (40-80) 01/05/17 06:43 Lymphocytes 29 % (20-50) 01/05/17 06:43 Monocytes 13 % (2-10) H 01/05/17 06:43 Eosinophils 5 % (0-5) 01/05/17 06:43 Basophils 1 % (0-3) 01/05/17 06:43 Metamyelocytes 2 % (0-0) H 01/05/17 06:43 Platelet Estimate DECREASED PLATELETS (NORMAL) 01/05/17 06:43 Platelet Morphology GIANT PLATELETS SEEN (NORMAL) 01/05/17 06:43 Anisocytosis 1+ 01/05/17 06:43 RBC Morph Micro Appear ABNORMAL (NORMAL) 01/05/17 06:43 PT 11.0 SECONDS (9.5-11.5) 01/08/17 06:22 INR 1.06 (0.5-1.4) 01/08/17 06:22 Sodium 136 mEq/L (136-145) 01/08/17 06:22 Potassium 3.5 mEq/L (3.5-5.1) 01/08/17 06:22 Chloride 100 mEq/L (98-107) 01/08/17 06:22 Carbon Dioxide 29.3 mEq/L (21.0-31.0) 01/08/17 06:22 Anion Gap 10.2 (7.0-16.0) 01/08/17 06:22 BUN 19 mg/dL (7-25) 01/08/17 06:22 Creatinine 1.1 mg/dL (0.7-1.3) 01/08/17 06:22 Est GFR ( Amer) > 60.0 ml/min (>90) 01/08/17 06:22 Est GFR (Non-Af Amer) > 60.0 ml/min 01/08/17 06:22 BUN/Creatinine Ratio 17.3 01/08/17 06:22 Glucose 124 mg/dL (70-105) H 01/08/17 06:22 POC Glucose 138 MG/DL (70 - 105) H 01/08/17 06:26 Calcium 9.2 mg/dL (8.6-10.3) 01/08/17 06:22 Total Bilirubin 0.6 mg/dL (0.3-1.0) 01/08/17 06:22 AST 28 U/L (13-39) 01/08/17 06:22 ALT 15 U/L (7-52) 01/08/17 06:22 Alkaline Phosphatase 65 U/L (34-104) 01/08/17 06:22 Ammonia 55 umol/L (16-53) H 01/04/17 08:40 Troponin I 0.03 ng/mL (0.01-0.05) 01/03/17 16:17 Total Protein 6.4 gm/dL (6.0-8.3) 01/08/17 06:22 Albumin 3.3 gm/dL (4.2-5.5) L 01/08/17 06:22 Globulin 3.1 gm/dL 01/08/17 06:22 Albumin/Globulin Ratio 1.1 (1.0-1.8) 01/08/17 06:22 Triglycerides 106 mg/dL (<150) 01/03/17 16:17 Cholesterol 178 mg/dL (<200) 01/03/17 16:17 LDL Cholesterol Direct 110 mg/dL (75-193) 01/03/17 16:17 HDL Cholesterol 40 mg/dL (23-92) 01/03/17 16:17 TSH 0.67 uIU/ml (0.34-5.60) 01/04/17 04:48 Urine Source CLEAN C 01/03/17 16:29 Urine Color YELLOW 01/03/17 16:29 Urine Clarity CLEAR (CLEAR) 01/03/17 16:29 Urine pH 6.0 (4.6 - 8.0) 01/03/17 16:29 Ur Specific Hunter 1.010 (1.005-1.030) 01/03/17 16:29 Urine Protein NEGATIVE mg/dL (NEGATIVE) 01/03/17 16:29 Urine Glucose (UA) NEGATIVE mg/dL (NEGATIVE) 01/03/17 16:29 Urine Ketones NEGATIVE mg/dL (NEGATIVE) 01/03/17 16:29 Urine Blood SMALL (NEGATIVE) H 01/03/17 16:29 Urine Nitrate NEGATIVE (NEGATIVE) 01/03/17 16:29 Urine Bilirubin NEGATIVE (NEGATIVE) 01/03/17 16:29 Urine Urobilinogen 0.2 E.U./dL (0.2 - 1.0) 01/03/17 16:29 Ur Leukocyte Esterase TRACE (NEGATIVE) H 01/03/17 16:29 Urine RBC 2-5 /hpf (0-5) H 01/03/17 16:29 Urine WBC 2-5 /hpf (0-5) H 01/03/17 16:29 Ur Epithelial Cells OCCASIONAL /lpf (FEW) 01/03/17 16:29 Urine Bacteria FEW /hpf (NONE SEEN) 01/03/17 16:29 - Physical Exam Vitals and I&O: Vital Signs Temp 97.5 F 01/10/17 04:00 Pulse 62 01/10/17 12:25 Resp 18 01/10/17 12:25 BP 98/52 01/10/17 12:25 Pulse Ox 92 01/10/17 12:25 Intake & Output 01/09/17 01/10/17 01/10/17 18:59 06:59 18:59 Intake Total 50 1200 Balance 50 1200 Weight (lbs) 56.608 kg Intake: Intake, IV Amount 50 1000 D5-0.45NS 1,000 ml @ 50 1000 mls/hr IV .Q20H [facility] Rx#: [id number] cefTRIAXone 1 gm In 50 Sodium Chloride 0.9% 50 ml @ 100 mls/hr IV Q24HR [facility] Rx#:[id number] Oral 200 Active Medications: Current Medications Acetaminophen/Hydrocodone Bitart ([place] 10 Mg/325 Mg) 1 tab PO Q6H PRN PRN Reason: Pain (Mild) Stop: 03/04/17 20:30 Last Admin: 01/08/17 20:56 Dose: 1 tab Atropine Sulfate (Atropine) 1 mg IVP Q4HR PRN PRN Reason: HR BELOW 40 Stop: 03/04/17 23:30 Last Admin: 01/04/17 01:29 Dose: 1 mg Calcium Carbonate (Calcium Carb) 600 mg PO DAILY [facility] Stop: 03/05/17 08:59 Last Admin: 01/10/17 08:40 Dose: 600 mg Divalproex Sodium (Depakote Dr) 250 mg PO TID TYRELL PRN Reason: Protocol Stop: 03/04/17 20:59 Last Admin: 01/10/17 08:40 Dose: 250 mg Furosemide (Lasix) 20 mg PO DAILY [facility] Stop: 03/05/17 08:59 Last Admin: 01/10/17 08:44 Dose: 20 mg Dextrose/Sodium Chloride (D5-0.45ns) 1,000 mls @ 50 mls/hr IV .Q20H [facility] Stop: 03/04/17 20:23 Last Admin: 01/10/17 05:27 Dose: 50 mls/hr Ceftriaxone Sodium 1 gm/ (Sodium Chloride) 50 mls @ 100 mls/hr IV Q24HR [facility] Stop: 03/05/17 12:59 Last Admin: 01/10/17 12:33 Dose: 100 mls/hr Lacosamide (Vimpat) 400 mg PO BID TYRELL Stop: 03/05/17 09:59 Last Admin: 01/10/17 12:42 Dose: 400 mg Lactobacillus Rhamnosus (Culturelle) 1 each PO DAILY TYRELL Stop: 03/08/17 15:59 Last Admin: 01/10/17 08:44 Dose: 1 each Lactulose (Cephulac) 60 gm PO TID TYRELL Stop: 03/04/17 20:59 Last Admin: 01/10/17 08:45 Dose: Not Given Latanoprost (Xalatan 0.005% Ophth Soln) 1 drop EACH EYE HS TYRELL Stop: 03/04/17 20:59 Last Admin: 01/09/17 21:46 Dose: 1 drop Lorazepam (Ativan) 1 mg IVP Q4HR PRN; Protocol PRN Reason: Seizures Stop: 03/09/17 05:58 Last Admin: 01/09/17 18:03 Dose: 1 mg Miscellaneous (Vte Chemical Prophylaxis Screen/ Admission) 1 ea PRN PRN PRN Reason: PROTOCOL Stop: 03/05/17 12:21 Miscellaneous (Probiotic Screen) 1 ea PRN PRN PRN Reason: PROTOCOL Stop: 03/08/17 15:50 Nystatin (Nystop) 100,000 units TP BID TYRELL Stop: 03/05/17 11:29 Last Admin: 01/10/17 08:45 Dose: 100,000 units Ondansetron HCl (Zofran) 4 mg IV Q6H PRN PRN Reason: Nausea / Vomiting Stop: 03/06/17 18:33 Last Admin: 01/09/17 17:44 Dose: 4 mg Pantoprazole Sodium (Protonix) 40 mg PO DAILY TYRELL Stop: 03/05/17 08:59 Last Admin: 01/10/17 08:40 Dose: 40 mg Theophylline (Toby-Dur) 200 mg PO BID [facility] Stop: 03/05/17 16:59 Last Admin: 01/10/17 08:39 Dose: 200 mg - Procedures Procedures: Procedures Procedure Code Date INSERT PACE. DUAL BECK IN CHEST SUBCU/FASCIA, OPEN [id number] 01/03/17 INSERTION OF PACEMAKER LEAD INTO R VENTRICLE, PERC APPROACH [id number] 01/03/17 INSERTION OF PACEMAKER LEAD INTO RIGHT ATRIUM, PERC APPROACH 64Y94AG 01/03/17 INSRT HEART PM ATRIAL & VENT [id number] 01/03/17 Assessment/Plan - Assessment Assessment: HEPATIC ENCEPHALOPATHY SICK SINUS SYNDROME ELEVATED BUN SEVERE MALNUTRITION ANEMIA HYPERNATREMIA HTN SCHIZOPHRENIA ACUTE UTI - Plan Plan: AM LABS IV ANTIBIOTICS Nutritional Asmnt/Malnutr-PDOC - Dietary Evaluation Malnutrition Findings (Please click <Entered> for more info): Nutritional Asmnt/Malnutrition Start: 01/08/17 12: 11 Text: Status: Complete Freq: Document 01/08/17 12:11 MMULHERN (Rec: 01/08/17 12:22 MMULHERN JOSE LUIS- FN) Nutritional Asmnt/Malnutrition Patient General Information Nutritional Screening Moderate Risk Screening Diagnosis Sick sinus syndrome, hepatic encephalopathy Pertinent Medical Hx/Surgical Hx HTN, CVA, TIA, GERD, schizophrenia, dementia Subjective Information Patient was admitted from SNF. Per nursing notes, several episodes of vomiting since admission. Had surgery this morning for pacemaker. Patient eating lunch at time of visit with help of [employer]. Appetite is good and eating without difficulty. Patient noted to be missing teeth. Current Diet Order/ Nutrition Support 2gm sodium mechanical soft Patient / S.O Not Indicated Pertinent Medications calcium carbonate, D5-0.45NS @ 50ml/hr, lasix, lactated ringers, culturelle, lactulose , zofran, protonix Pertinent Labs (01/08) albumin 3.3 (decreasing ) Nutritional Hx/Data Height 1.57 m Height (Calculated Centimeters) 157.5 Current Weight (lbs) 54.885 kg Weight (Calculated Kilograms) 54.9 Weight (Calculated Grams) 87157.7 Dawn Body Weight 118 % Dawn Body Weight 102 Recent Weight Change No Weight Status Approriate GI Symptoms Food Allergies No Cultural/Ethnic/Gnosticism Belief None indicated Usual diet at home 2gm sodium mechanical soft Skin Integrity/Comment: Bill Nickerson Estimated Nutritional Goals BEE in Kcals: Using Current wt Calories/Kcals/Kg 25-30 kcal/kg Kcals Calculated ~7464-7246 kcal/day Protein: Using Current wt Protein g/k-1.2 gm/kg Protein Calculated 55-65 gm/day Fluid: ml 4112-6258 ml/day (1 ml/kcal) Nutritional Problem 1. Problem Problem Altered GI FUnction related to Etiology unknown etiology Signs/Symptoms: Per nursing flowsheet, patient with nausea, vomiting, undigested food, constipation Intervention/Recommendation Comments 1. Continue 2gm sodium, mechanical soft diet as tolerated by patient. 2. Consider anti-emetic medication and GI mobility agents to prevent nausea and constipation. Expected Outcomes/Goals Expected Outcomes/Goals oral intake to meet >75% of estimated nutrient needs, nutrition related labs normal, weight stable.
--- NOTE | 2017-01-11 13:00 | Diagnostic Imaging Report ---
Fluoroscopy was utilized for facilitation of pacemaker placement. Please refer to the procedure report for complete details. The total fluoroscopic time was 3 minutes and 2 seconds.
== END 2017-01-10 19:00 | disposition home or self-care (01) | DRG 242 ==
LOC: ER 16:04 → TELE 17:55 → UNDODISIN 21:00 → ICU 21:00 → TELE 01-05 15:45 → MSI 01-10 13:37
PROVIDERS: ADMIT Internal Medicine; ATTEND Internal Medicine
PROC: 0JH606Z Insertion of Pacemaker, Dual Chamber into Chest Subcutaneous Tissue and Fascia, Open Approach (ICD-10-PCS; principal; 2017-01-08)
PROC: 02HK3JZ Insertion of Pacemaker Lead into Right Ventricle, Percutaneous Approach (ICD-10-PCS; 2017-01-08)
PROC: 02H63JZ Insertion of Pacemaker Lead into Right Atrium, Percutaneous Approach (ICD-10-PCS; 2017-01-08)
DX: I49.5 Sick sinus syndrome (principal); E43 Unspecified severe protein-calorie malnutrition; E87.0 Hyperosmolality and hypernatremia; K72.90 Hepatic failure, unspecified without coma; F03.90 Unspecified dementia, unspecified severity, without behavioral disturbance, psychotic disturbance, mood disturbance, and anxiety; N39.0 Urinary tract infection, site not specified; D64.9 Anemia, unspecified; G40.909 Epilepsy, unspecified, not intractable, without status epilepticus; I10 Essential (primary) hypertension; F20.9 Schizophrenia, unspecified; G25.5 Other chorea; K21.9 Gastro-esophageal reflux disease without esophagitis; F32.9 Major depressive disorder, single episode, unspecified; H40.9 Unspecified glaucoma; Z79.899 Other long term (current) drug therapy; Z86.73 Personal history of transient ischemic attack (TIA), and cerebral infarction without residual deficits; Z68.22 Body mass index [BMI] 22.0-22.9, adult
CPT/HCPCS: 36415-UA; 71010-TC; 76000-TC; 80048-TC; 80053-TC; 80061-TC; 81001-TC; 82140-TC; 82948-90; 84443-TC; 84484-TC; 85007-TC; 85025-TC; 85027-TC; 85610-TC; 93005; 94760; J0696; J2001; J2060; J2250; J2405; J2704; Z7610